=== PATIENT | male | born 1945 | race Caucasian/White ===

== ENCOUNTER 2016-05-24 08:16 | Emergency (ER) | payer MEDICARE ==
[~2016-05-24] VITALS: Ht 172.7 cm; Wt 134.0 kg
[~2016-05-24 08:16] MED LIST: ALPR0.5T3 PO; COZA100T PO; IPRAAER IN; METO25 PO; PARO30TA PO; ZOCO40TA PO
[2016-05-24 08:20] VITALS: BP 178/97; PULSE 89; RESP 28; TEMP 97.9; O2SAT 88
[2016-05-24 08:22] VITALS: RESP 28; O2SAT 94
[2016-05-24] MEDS ORDERED: SODIUM CHLORIDE 0.9% FLUSH 5 ML FLUSH IVF PRN (08:30)
[2016-05-24] MEDS ORDERED: methylPREDNISolone SOD SUCC 125 MG/2 ML VIAL IVP ONE (08:30)
[2016-05-24 08:37] LABS: AUTOMATED NEUTROPHIL # 5.4 TH/MM3 (1.8-7.7); BASOPHIL # 0.1 TH/MM3 (0-0.2); EOSINOPHIL # 0.3 TH/MM3 (0-0.4); EOSINOPHIL % 3.2 % (0.0-4.0); HEMO FLAGS DIFF FINAL; LYMPH % 17.6 % (9.0-44.0); LYMPHOCYTE # 1.5 TH/MM3 (1.0-4.8); MEAN CELL VOLUME 88.1 FL (80.0-100.0); MEAN CORPUSCULAR HEMOGLOBIN 29.7 PG (27.0-34.0); MEAN CORPUSCULAR HGB CONC 33.7 % (32.0-36.0); MONO % 15.4 % (0.0-8.0); NEUT % 62.8 % (16.0-70.0); PLATELET COUNT 199 TH/MM3 (150-450); RED BLOOD COUNT 4.76 MIL/MM3 (4.50-5.90); RED CELL DISTRIBUTION WIDTH 14.1 % (11.6-17.2); WHITE BLOOD COUNT 8.6 TH/MM3 (4.0-11.0)
--- NOTE | 2016-05-24 08:40 | PD ---
HPI . Dyspnea Chief Complaint: Respiratory Time Seen by Provider: 08:20 Travel History International Travel<30 days: No Contact w/Intl Traveler<30days: No History of Present Illness HPI Patient presents with increasing dyspnea since yesterday. He describes dyspnea on exertion stating that he can only walk 2 or 3 steps about having to stop and catch his breath. He also reports a congested sounding cough but no sputum production. He denies fever. He admits to increased swelling of his lower extremities, left worse than right. He reports a lesion on the left lower extremity for the last couple of days which has been draining clear fluid. He states that he bumped his leg on something causing the break in the skin. [facility] Past Medical History COPD: Yes Diabetes: Yes (BORDERLINE) Diminished Hearing: No Hypertension: Yes Social History Alcohol Use: Yes (WEEKLY) Tobacco Use: Yes Substance Use: No Allergies-Medications (Allergen,Severity, Reaction): Coded Allergies: No Known Allergies (Unverified , 05/24/16) Reported Meds & Prescriptions Reported Meds & Active Scripts Active Reported Combivent Respimat (Albuterol/Ipratropium) Respimat Aer 3 Inhalation IN QID Zocor 40 mg (Simvastatin) 40 Mg Tab 1 Tab PO HS Paroxetine Hcl (Paroxetine HCl) 30 Mg Tab 30 Mg PO DAILY Metoprolol Tartrate 25 mg (Metoprolol Tartrate) 25 Mg Tab 1 Tab PO BID Cozaar (Losartan Potassium) 100 Mg Tab 100 Mg PO DAILY Alprazolam 0.5 Mg Tab 0.5 Mg PO HS Review of Systems Except as stated in HPI: all other systems reviewed are Neg General / Constitutional: No: Fever, Chills Cardiovascular: Positive: Dyspnea on exertion, Edema Respiratory: Positive: Cough, Shortness of Breath Gastrointestinal: No: Nausea, Vomiting Skin: Positive Rash, Positive Lesions Physical Exam Narrative GENERAL: Obese man who is having some mild respiratory distress. SKIN: Warm and dry. He has an ulcerative lesion noted to the left lateral lower extremity. It is about 4 cm in diameter and is draining serous fluid. The surrounding skin is edematous and thickened and a alejandra red color. HEAD: Atraumatic. Normocephalic. EYES: Pupils equal and round. ENT: No nasal bleeding or discharge. Mucous membranes pink and moist. NECK: Trachea midline. CARDIOVASCULAR: Regular rate and rhythm. Heart sounds are normal. RESPIRATORY: No accessory muscle use. Decreased air movement throughout. He is able to speak in complete sentences without respiratory distress. GASTROINTESTINAL: Abdomen soft, non-tender, nondistended. MUSCULOSKELETAL: No obvious deformities. Positive lower extremity edema, left worse than right. The right leg does not have the above-mentioned skin changes. NEUROLOGICAL: Awake and alert. No obvious cranial nerve deficits. Motor grossly within normal limits. Normal speech. PSYCHIATRIC: Appropriate mood and affect; insight and judgment normal. Data Data Last Documented VS Vital Signs Date Time Temp Pulse Resp B/P Pulse Ox O2 Delivery O2 Flow Rate FiO2 05/24/16 08:22 28 94 05/24/16 08:22 Nasal Cannula 3 05/24/16 08:20 97.9 89 178/97 Orders Complete Blood Count With Diff (05/24/16 08:21) Comprehensive Metabolic Panel (05/24/16 08:21) B-Type Natriuretic Peptide (05/24/16 08:21) Prothrombin Time / Inr (Pt) (05/24/16 08:21) Magnesium (Mg) (05/24/16 08:21) Ckmb (Isoenzyme) Profile (05/24/16 08:21) Troponin I (05/24/16 08:21) Iv Access Insert/Monitor (05/24/16 08:21) Electrocardiogram (05/24/16 08:21) Ecg Monitoring (05/24/16 08:21) Oximetry (05/24/16 08:21) Oxygen Administration (05/24/16 08:21) Chest, Single Ap (05/24/16 08:21) Sodium Chloride 0.9% Flush (Ns Flush) (05/24/16 08:30) Methylprednisolone So Succ Inj (Solumedr (05/24/16 08:30) Albuterol-Ipratropium Neb (Duoneb Neb) (05/24/16 08:30) CKMB (05/24/16 08:27) CKMB% (05/24/16 08:27) Labs Laboratory Tests Test 05/24/16 08:27 White Blood Count 8.6 TH/MM3 Red Blood Count 4.76 MIL/MM3 Hemoglobin 14.1 GM/DL Hematocrit 42.0 % Mean Corpuscular Volume 88.1 FL Mean Corpuscular Hemoglobin 29.7 PG Mean Corpuscular Hemoglobin 33.7 % Concent Red Cell Distribution Width 14.1 % Platelet Count 199 TH/MM3 Mean Platelet Volume 9.3 FL Neutrophils (%) (Auto) 62.8 % Lymphocytes (%) (Auto) 17.6 % Monocytes (%) (Auto) 15.4 % Eosinophils (%) (Auto) 3.2 % Basophils (%) (Auto) 1.0 % Neutrophils # (Auto) 5.4 TH/MM3 Lymphocytes # (Auto) 1.5 TH/MM3 Monocytes # (Auto) 1.3 TH/MM3 Eosinophils # (Auto) 0.3 TH/MM3 Basophils # (Auto) 0.1 TH/MM3 CBC Comment DIFF FINAL Differential Comment Prothrombin Time 11.0 SEC Prothromb Time International 1.0 RATIO Ratio Sodium Level 140 MEQ/L Potassium Level 4.2 MEQ/L Chloride Level 104 MEQ/L Carbon Dioxide Level 28.2 MEQ/L Anion Gap 8 MEQ/L Blood Urea Nitrogen 10 MG/DL Creatinine 0.92 MG/DL Estimat Glomerular Filtration 82 ML/MIN Rate Random Glucose 124 MG/DL Calcium Level 8.6 MG/DL Magnesium Level 2.1 MG/DL Total Bilirubin 0.3 MG/DL Aspartate Amino Transf 18 U/L (AST/SGOT) Alanine Aminotransferase 26 U/L (ALT/SGPT) Alkaline Phosphatase 67 U/L Total Creatine Kinase 154 U/L Creatine Kinase MB 1.3 NG/ML Troponin I LESS THAN 0.02 NG/ML B-Type Natriuretic Peptide 34 PG/ML Total Protein 7.0 GM/DL Albumin 3.2 GM/DL MDM Medical Decision Making Medical Screen Exam Complete: Yes Emergency Medical Condition: Yes Medical Record Reviewed: Yes (PFTs show severe obstructive disease with minimal response to bronchodilators.) Interpretation(s) EKG shows a sinus rhythm with no acute ST segment elevation or depression. Differential Diagnosis Differential diagnosis of dyspnea includes but is not limited to congestive heart failure, pneumonia, wheezing, pneumothorax, pulmonary embolism Narrative Course Patient presents with increasing dyspnea since yesterday. This is probably a COPD exacerbation but could be CHF. 9:20 AM CBC is normal Chemistries are normal. Cardiac enzymes are negative. His BNP is 34. Chest x-ray shows no infiltrate. The chest x-ray was independently viewed by me. So, this patient appears to have a COPD exacerbation. Patient is feeling much better following steroids and nebs. Critical Care Narrative Aggregate critical care time was 30 minutes. Time to perform other separately billable procedures was not included in the critical care time. My time did not include minutes spent treating any other patients simultaneously or on activities that did not directly contribute to the patient's treatment. The services I provided to this patient were to treat and/or prevent clinically significant deterioration that could result in: Further respiratory compromise, respiratory arrest, I provided critical care services requiring my management, as noted below: Chart data review, documentation time, medication orders and management, vital sign assessments/reviewing monitor data, ordering and reviewing lab tests, ordering and interpreting/reviewing x-rays and diagnostic studies, care of the patient and discussion of the patient with the admitting physicians. Diagnosis Primary Impression: COPD exacerbation Med/Other Pt SpecificInfo: Prescription(s) given Scripts Prednisone (48) 10 mg tab Dose Pack 10 Mg Dspk10 Mg PO DIRECTED #1 DSPK Ref 0 Prov:Iqra Cabral MD 05/24/16 Disposition: 01 DISCHARGE HOME Condition: Stable Iqra Cabral MD May 24, 2016 08:40
[2016-05-24] MEDS: RESP: ALBUTEROL 2.5 MG/IPRATROPIUM 0.5 MG NEB (SCH) INH (08:48)
[2016-05-24 09:02] LABS: ALKALINE PHOSPHATASE 67 U/L (45-117); CREATINE KINASE 154 U/L (39-308); TOTAL BILIRUBIN ADULT 0.3 MG/DL (0.2-1.0)
[2016-05-24 09:06] LABS: ALT (GPT) 26 U/L (12-78); ANION GAP 8 MEQ/L (5-15); AST (GOT) 18 U/L (15-37); BICARBONATE 28.2 MEQ/L (21.0-32.0); BLOOD UREA NITROGEN 10 MG/DL (7-18); CHLORIDE 104 MEQ/L (98-107); GLOMERULAR FILTRATION RATE 82 ML/MIN (>89); MAGNESIUM 2.1 MG/DL (1.5-2.5); POTASSIUM 4.2 MEQ/L (3.5-5.1); SODIUM (NA) 140 MEQ/L (136-145)
--- NOTE | 2016-05-24 09:11 | RADRPT ---
EXAM DATE/TIME: 05/24/2016 08:48 [facility] COMPARISON: No previous studies available for comparison. INDICATIONS : Shortness of breath. MEDICAL HISTORY : Hypertension. Chronic obstructive pulmonary disease. Diabetes mellitus type II. Smoker. SURGICAL HISTORY : None. ENCOUNTER: Initial ACUITY: 2 days PAIN SCORE: 0/10 LOCATION: Bilateral chest FINDINGS: A single view of the chest demonstrates the lungs to be symmetrically aerated without evidence of mas s, infiltrate or effusion. The cardiomediastinal contours are unremarkable. Osseous structures are intact. CONCLUSION: No acute disease. David Krause MD on May 24, 2016 at 9:09 Board Certified Radiologist. This report was verified electronically.
[2016-05-24 09:14] LABS: CKMB 1.3 NG/ML (0.5-3.6)
[2016-05-24] MEDS ORDERED: PRED10PA2 PO (09:26)
[2016-05-24 09:30] VITALS: BP 142/101; PULSE 98; RESP 16; O2SAT 98
[2016-05-24] MEDS ORDERED: ALPR0.5T3 PO (10:11)
[2016-05-24] MEDS ORDERED: SPIRCAP INH (10:11)
[2016-05-24] MEDS ORDERED: FURO40TA PO (10:11)
[2016-05-24] MEDS ORDERED: SYMB80AE INH (10:11)
[2016-05-24] MEDS ORDERED: LOSA100T PO (10:11)
[2016-05-24] MEDS ORDERED: SIMV40TA PO (10:11)
[2016-05-24] MEDS ORDERED: METO25TA3 PO (10:11)
[2016-05-24] MEDS ORDERED: PARO30TA2 PO (10:11)
[2016-05-24] MEDS ORDERED: ALBU1AER5 INH (10:11)
[2016-05-24 10:30] VITALS: BP 154/108; PULSE 104; RESP 18; O2SAT 98
[2016-05-24] MEDS ORDERED: LOSARTAN 50 MG TAB PO ONE (10:45)
[2016-05-24] MEDS ORDERED: METOPROLOL TARTRATE 25 MG TAB PO ONE (10:45)
--- NOTE | 2016-05-24 13:07 | EKG ---
Date Performed: 05/24/2016 Time Performed: 08:34:34 PTAGE: 70 years EKG: Sinus rhythm WITH OCCASIONAL SUPRAVENTRICULAR PREMATURE COMPLEXES BORDERLINE ECG NO PREVIOUS TRACING DOCTOR: Eliza Clements Interpretating Date/Time 05/24/2016 13:06:11
== END 2016-05-24 10:58 | disposition home or self-care (01) ==
LOC: NEPE 08:16
DX: J44.1 Chronic obstructive pulmonary disease with (acute) exacerbation (principal); I10 Essential (primary) hypertension; Z72.0 Tobacco use; F10.10 Alcohol abuse, uncomplicated
CPT/HCPCS: 71010; 80053; 82550; 82552; 83735; 83880; 84484; 85025; 85610; 93005; 94640; 94664; 96374; 99284; J2930

== ENCOUNTER 2016-08-27 00:36 | Observation (INO) | payer MEDICARE ==
[2016-08-27] VITALS (8 sets, daily range): BP systolic 114–155; BP diastolic 56–72; PULSE 90–102; RESP 18–32; TEMP 97.9–98.7; O2SAT 85–98
[~2016-08-27] VITALS: Ht 172.7 cm; Wt 137.0 kg
[~2016-08-27 00:36] MED LIST changes: +ALBU1AER5 INH; -COZA100T PO; +FURO40TA PO; -IPRAAER IN; +LOSA100T PO; -METO25 PO; +METO25TA3 PO; -PARO30TA PO; +PARO30TA2 PO; +PRED10PA2 PO; +SIMV40TA PO; +SPIRCAP INH; +SYMB80AE INH; -ZOCO40TA PO
[2016-08-27] MEDS ORDERED: SODIUM CHLORIDE 0.9% FLUSH 10 ML FLUSH IVF PRN (00:45)
[2016-08-27] MEDS ORDERED: methylPREDNISolone SOD SUCC 125 MG/2 ML VIAL IVP ONE (00:45)
[2016-08-27] MEDS: RESP: ALBUTEROL 2.5 MG/IPRATROPIUM 0.5 MG NEB (SCH) INH (00:57)
[2016-08-27 01:26] LABS: BASOPHIL # 0.1 TH/MM3 (0-0.2); BASOPHIL % 0.8 % (0.0-2.0); EOSINOPHIL # 0.2 TH/MM3 (0-0.4); EOSINOPHIL % 1.4 % (0.0-4.0); HEMATOCRIT 43.4 % (39.0-51.0); HEMO FLAGS DIFF FINAL; LYMPH % 15.9 % (9.0-44.0); LYMPHOCYTE # 2.2 TH/MM3 (1.0-4.8); MEAN CELL VOLUME 87.6 FL (80.0-100.0); MEAN CORPUSCULAR HEMOGLOBIN 28.9 PG (27.0-34.0); MONO % 11.2 % (0.0-8.0); NEUT % 70.7 % (16.0-70.0); PLATELET COUNT 224 TH/MM3 (150-450); RED BLOOD COUNT 4.95 MIL/MM3 (4.50-5.90); RED CELL DISTRIBUTION WIDTH 14.1 % (11.6-17.2); WHITE BLOOD COUNT 14.1 TH/MM3 (4.0-11.0)
[2016-08-27 01:35] LABS: APTT (PATIENT) 26.8 SEC (24.3-30.1); PROTHROMBIN TIME - PATIENT 10.7 SEC (9.8-11.6)
[2016-08-27 01:45] LABS: ALT (GPT) 26 U/L (12-78); ANION GAP 8 MEQ/L (5-15); AST (GOT) 16 U/L (15-37); BICARBONATE 32.6 MEQ/L (21.0-32.0); BLOOD UREA NITROGEN 17 MG/DL (7-18); CHLORIDE 100 MEQ/L (98-107); GLOMERULAR FILTRATION RATE 71 ML/MIN (>89); POTASSIUM 4.2 MEQ/L (3.5-5.1); SODIUM (NA) 141 MEQ/L (136-145)
--- NOTE | 2016-08-27 01:45 | RADRPT ---
EXAM DATE/TIME: 08/27/2016 01:10 [facility] COMPARISON: CHEST SINGLE AP, May 24, 2016, 8:48. INDICATIONS : Shortness of breath. MEDICAL HISTORY : Hypertension. Chronic obstructive pulmonary disease. Diabetes mellitus type II. SURGICAL HISTORY : None. ENCOUNTER: Initial ACUITY: 1 day PAIN SCORE: 0/10 LOCATION: Bilateral chest FINDINGS: A single view of the chest demonstrates the lungs to be symmetrically aerated without evidence of mas s, infiltrate or effusion. The cardiomediastinal contours are unremarkable. Osseous structures are intact. CONCLUSION: No acute disease. Arnie Pope Jr., MD on August 27, 2016 at 1:43 Board Certified Radiologist. This report was verified electronically.
[2016-08-27 01:49] LABS: ALKALINE PHOSPHATASE 66 U/L (45-117); CREATINE KINASE 101 U/L (39-308); TOTAL BILIRUBIN ADULT 0.3 MG/DL (0.2-1.0)
[2016-08-27 02:07] LABS: CKMB 1.9 NG/ML (0.5-3.6)
[2016-08-27] MEDS ORDERED: MORPHINE SULFATE 4 MG/ML INJ IV PUSH ONE (03:00)
[2016-08-27] MEDS ORDERED: IOHEXOL 350 MG/ML 10 ML VIAL (for RAD DIAG) IV ONE (03:00)
--- NOTE | 2016-08-27 03:15 | RADRPT ---
EXAM DATE/TIME: 08/27/2016 02:49 [facility] COMPARISON: No previous studies available for comparison. INDICATIONS : Chest pain and short of breath, evaluate for pulmonary embolism. IV CONTRAST: 75 cc Omnipaque 350 (iohexol) IV RADIATION DOSE: 26.01 CTDIvol (mGy) MEDICAL HISTORY : Hypertension. Chronic obstructive pulmonary disease. SURGICAL HISTORY : None. ENCOUNTER: Initial ACUITY: 2 days PAIN SCALE: 4/10 LOCATION: chest TECHNIQUE: Volumetric scanning of the chest was performed using a pulmonary embolism protocol MIP images were re constructed. Using automated exposure control and adjustment of the mA and/or kV according to patien t size, radiation dose was kept as low as reasonably achievable to obtain optimal diagnostic quality images. FINDINGS: PULMONARY ARTERIES: No filling defects are seen in the pulmonary arteries through the segmental level. LUNGS: Linear atelectasis is seen involving the bases bilaterally. No infiltrates or effusions. PLEURAE: There is no pleural thickening or pleural effusion. MEDIASTINUM: There is good visualization of the great vessels of the middle mediastinum. No evidence of mediastin al or hilar adenopathy/mass. MUSCULOSKELETAL: Within normal limits for patient age. MISCELLANEOUS: Small calcified gallstones are noted within the gallbladder. CONCLUSION: 1. No pulmonary emboli. 2. Bibasilar atelectasis versus scarring. 3. Cholelithiasis. Arnie Pope Jr., MD on August 27, 2016 at 3:11 Board Certified Radiologist. This report was verified electronically.
--- NOTE | 2016-08-27 03:50 | PD ---
HPI Chief Complaint: Respiratory Symptoms Time Seen by Provider: 00:44 Travel History International Travel<30 days: No Contact w/Intl Traveler<30days: No Traveled to known affect area: No History of Present Illness HPI Patient is a 70-year-old male who comes in complaining of shortness of breath and chest pain. He says he has been feeling short of breath for the past few days, but the chest pain started a few hours prior to arrival. He says he was sitting down when the pain started. He says the pain is in the center of his chest and a sharp in nature. He has history of COPD, and says been bothering him lately. He has had a cough, but has not had any fever or chills. He denies nausea or vomiting. PFSH Past Medical History COPD: Yes Diabetes: Yes (DIET CONTROLLED) Patient Takes Glucophage: No Diminished Hearing: No Hypertension: Yes Respiratory: Yes (COPD) Past Surgical History Abdominal Surgery: Yes (HERNIA REPAIR) Social History Alcohol Use: Yes (WEEKLY) Tobacco Use: No Substance Use: No Allergies-Medications (Allergen,Severity, Reaction): Coded Allergies: No Known Allergies (Unverified , 08/27/16) Reported Meds & Prescriptions Reported Meds & Active Scripts Active Prednisone (48) 10 mg tab Dose Pack (Prednisone) 10 Mg Dspk 10 Mg PO DIRECTED Reported Furosemide 40 Mg Tab 40 Mg PO DAILY Spiriva Handihaler (Tiotropium Inh) 18 Mcg Cap 18 Mcg INH DAILY 1 capsule = 18 mcg Simvastatin 40 Mg Tab 40 Mg PO HS Paroxetine (Paroxetine HCl) 30 Mg Tab 30 Mg PO DAILY Metoprolol Tartrate 25 Mg Tab 25 Mg PO BID Losartan (Losartan Potassium) 100 Mg Tab 100 Mg PO DAILY Symbicort Inh (Budesonide/Formoterol Fumarate) 80-4.5 Mcg/Act Aero 2 Puff INH BID Alprazolam 0.5 Mg Tab 0.5 Mg PO BID Proair Respiclick Inh (Albuterol Sulfate) 90 Mcg/Act Aerp 1 Puff INH Q4H PRN Review of Systems Except as stated in HPI: all other systems reviewed are Neg General / Constitutional: No: Fever, Chills Eyes: No: Blurred Vision HENT: No: Headaches Cardiovascular: Positive: Chest Pain or Discomfort Respiratory: Positive: Cough, Shortness of Breath Gastrointestinal: No: Nausea, Vomiting Musculoskeletal: Positive: Edema, No: Pain Skin: No Rash Neurologic: No: Weakness Physical Exam Narrative GENERAL: Awake and alert, in no acute distress. SKIN: Focused skin assessment warm/dry. Chronic erythema of the left lower extremity. HEAD: Atraumatic. Normocephalic. EYES: Pupils equal and round. No scleral icterus. ENT: No nasal bleeding or discharge. Mucous membranes pink and moist. NECK: Trachea midline. No JVD. CARDIOVASCULAR: Regular rate and rhythm. No murmur appreciated. RESPIRATORY: No accessory muscle use. Decreased breath sounds bilaterally. Breath sounds equal bilaterally. GASTROINTESTINAL: Abdomen soft, non-tender, nondistended. MUSCULOSKELETAL: No obvious deformities. No clubbing. No cyanosis. Mild edema bilateral lower extremities. NEUROLOGICAL: Awake and alert. No obvious cranial nerve deficits. Motor grossly within normal limits. Normal speech. PSYCHIATRIC: Appropriate mood and affect; insight and judgment normal. Data Data Last Documented VS Vital Signs Date Time Temp Pulse Resp B/P Pulse Ox O2 Delivery O2 Flow Rate FiO2 08/27/16 01:00 98 Nasal Cannula 2.00 08/27/16 00:44 98.7 93 32 154/72 Orders Complete Blood Count With Diff (08/27/16 00:44) Comprehensive Metabolic Panel (08/27/16 00:44) B-Type Natriuretic Peptide (08/27/16 00:44) Act Partial Throm Time (Ptt) (08/27/16 00:44) Prothrombin Time / Inr (Pt) (08/27/16 00:44) Ckmb (Isoenzyme) Profile (08/27/16 00:44) Troponin I (08/27/16 00:44) Iv Access Insert/Monitor (08/27/16 00:44) Ecg Monitoring (08/27/16 00:44) Oximetry (08/27/16 00:44) Oxygen Administration (08/27/16 00:44) Chest, Single Ap (08/27/16 00:44) Ct Pulmonary Angiogram (08/27/16 00:44) Sodium Chloride 0.9% Flush (Ns Flush) (08/27/16 00:45) Methylprednisolone So Succ Inj (Solumedr (08/27/16 00:45) Albuterol-Ipratropium Neb (Duoneb Neb) (08/27/16 00:45) CKMB (08/27/16 01:10) CKMB% (08/27/16 01:10) Morphine Inj (Morphine Inj) (08/27/16 03:00) Iohexol 350 Inj (Omnipaque 350 Inj) (08/27/16 03:00) Admit Order (Ed Use Only) (08/27/16 ) Labs Laboratory Tests Test 08/27/16 01:10 White Blood Count 14.1 TH/MM3 Red Blood Count 4.95 MIL/MM3 Hemoglobin 14.3 GM/DL Hematocrit 43.4 % Mean Corpuscular Volume 87.6 FL Mean Corpuscular Hemoglobin 28.9 PG Mean Corpuscular Hemoglobin 33.0 % Concent Red Cell Distribution Width 14.1 % Platelet Count 224 TH/MM3 Mean Platelet Volume 10.1 FL Neutrophils (%) (Auto) 70.7 % Lymphocytes (%) (Auto) 15.9 % Monocytes (%) (Auto) 11.2 % Eosinophils (%) (Auto) 1.4 % Basophils (%) (Auto) 0.8 % Neutrophils # (Auto) 10.0 TH/MM3 Lymphocytes # (Auto) 2.2 TH/MM3 Monocytes # (Auto) 1.6 TH/MM3 Eosinophils # (Auto) 0.2 TH/MM3 Basophils # (Auto) 0.1 TH/MM3 CBC Comment DIFF FINAL Differential Comment Prothrombin Time 10.7 SEC Prothromb Time International 1.0 RATIO Ratio Activated Partial 26.8 SEC Thromboplast Time Sodium Level 141 MEQ/L Potassium Level 4.2 MEQ/L Chloride Level 100 MEQ/L Carbon Dioxide Level 32.6 MEQ/L Anion Gap 8 MEQ/L Blood Urea Nitrogen 17 MG/DL Creatinine 1.04 MG/DL Estimat Glomerular Filtration 71 ML/MIN Rate Random Glucose 150 MG/DL Calcium Level 9.1 MG/DL Total Bilirubin 0.3 MG/DL Aspartate Amino Transf 16 U/L (AST/SGOT) Alanine Aminotransferase 26 U/L (ALT/SGPT) Alkaline Phosphatase 66 U/L Total Creatine Kinase 101 U/L Creatine Kinase MB 1.9 NG/ML Troponin I LESS THAN 0.02 NG/ML B-Type Natriuretic Peptide 21 PG/ML Total Protein 7.2 GM/DL Albumin 3.5 GM/DL MDM Medical Decision Making Medical Screen Exam Complete: Yes Emergency Medical Condition: Yes Medical Record Reviewed: Yes Interpretation(s) ECG shows sinus rhythm at 98, no ST elevation or depression. Differential Diagnosis COPD exacerbation versus ACS versus NSTEMI versus STEMI versus pneumonia Narrative Course Patient is a 70-year-old male comes in complaining of shortness of breath and chest pain. Exam shows decreased breath sounds throughout both lungs. IV established, labs sent. 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 Labs show no elevated white blood cell count of 15. Patient given 3 duo nebs and a dose of steroids. Given aspirin. He reports feeling better after duo nebs, however he continues of chest pain. Given morphine for pain. We'll admit for further management. Diagnosis Primary Impression: Chest pain Qualified Code: R07.9 - Chest pain, unspecified type Additional Impression: COPD exacerbation Admitting Information Admitting Physician Requests: Gela Vu MD Aug 27, 2016 03:50
[2016-08-27] MEDS ORDERED: RESP: ALBUTEROL 1.25 MG/3 ML NEB (PRN) NEB (04:00)
[2016-08-27] MEDS: RESP: ALBUTEROL 2.5 MG/IPRATROPIUM 0.5 MG NEB (SCH) NEB ×4 (04:10→15:31)
[2016-08-27] MEDS ORDERED: methylPREDNISolone SOD SUCC 125 MG/2 ML VIAL IV PUSH SCH (06:00)
[2016-08-27] MEDS ORDERED: ASPIRIN 81 MG CHEW TAB CHEW ONE (06:15)
[2016-08-27] MEDS ORDERED: ACETAMINOPHEN/HYDROcodone 325 MG/5 MG TAB PO PRN (10:00)
[2016-08-27] MEDS ORDERED: NALOXONE HCL 0.4 MG/ML AMP IV PRN (10:00)
[2016-08-27] MEDS ORDERED: ACETAMINOPHEN/HYDROcodone 325 MG/7.5 MG TAB PO PRN (10:00)
[2016-08-27] MEDS ORDERED: DEXTROSE 50% IN WATER 50 ML VIAL(D50) IV PUSH PRN (10:00)
[2016-08-27] MEDS ORDERED: GLUCAGON 1 MG/ML VIAL OTHER PRN (10:00)
[2016-08-27] MEDS ORDERED: MORPHINE SULFATE 4 MG/ML INJ IV PRN (10:00)
[2016-08-27] MEDS ORDERED: ACETAMINOPHEN 325 MG TAB PO PRN (10:00)
--- NOTE | 2016-08-27 10:18 | HHI.HP ---
cc: Rohit Damian MD [facility] Service [facility] Primary Care Physician Rohit Damian MD Admission Diagnosis COPD, chest pain Diagnoses: Chief Complaint: Chest pain Travel History International Travel<30 Days: No Contact w/Intl Traveler <30 Da: No Traveled to Known Affected Are: No History of Present Illness 70-year-old obese male with a history of hypertension, COPD, diet-controlled diabetes mellitus presents emergency room secondary to recurrent substernal chest pain that happened yesterday evening after dinner. He stated that earlier yesterday afternoon, he was at [employer] and was putting up tile loading it to his truck when he had some increasing shortness of breath with physical exertion. At that time, he didn't have any significant chest pain and noted the shortness of breath improved with rest. Post dinner, patient developed a sharp stabbing substernal pain with no radiation with the pain intensity of 8 out of 10 with no associated shortness of breath, nausea, nor any heart palpitations. At that time, he also felt extremely fatigued. After he took 2 Ex-Lax, he states that the pain did improve somewhat down to a 2 out of 10, however when the pain started escalating again back to pain intensity of 8, he came to the emergency room this morning at 1 AM. He states after given morphine , his pain has improved. Currently, he states his pain is at a level of 1 out of 10. He states that he had nuclear stress test probably within the past 5 years which was negative. He also had cardiac catheterization 15 years ago which is negative. However, since then he admitted to having increased in weight gain. He denies any new symptoms of orthopnea, PND, increased lower extremity swelling. He actually stated that taking his home Lasix has helped his lower extremity edema and actually this has improved the past few weeks. He denies associated fever, nausea, vomiting, nor any chills. He denies any history of gallbladder disease. He does state he has a history of COPD but is not on any home oxygen. He does use scheduled inhaler but not a nebulizer machine. He does ambulate independently. Review of Systems Constitutional: COMPLAINS OF: Fatigue, Weight gain, DENIES: Fever, Chills, Change in appetite Endocrine: DENIES: Heat/cold intolerance Eyes: DENIES: Blurred vision, Eye pain, Vision loss Ears, nose, mouth, throat: DENIES: Hearing loss, Nasal discharge, Throat pain, Ear Pain, Sinus Pain Respiratory: COMPLAINS OF: Shortness of breath, DENIES: Cough, Wheezing, Hemoptysis, Sputum production Cardiovascular: COMPLAINS OF: Chest pain, DENIES: Palpitations, Dyspnea on Exertion, PND, Lower Extremity Edema, Orthopnea Gastrointestinal: DENIES: Abdominal pain, Black stools, Bloody stools, Constipation, Diarrhea, Nausea, Vomiting Musculoskeletal: DENIES: Joint pain, Muscle aches, Stiffness Integumentary: DENIES: Rash Hematologic/lymphatic: DENIES: Bruising, Lymphadenopathy Immunologic/allergic: DENIES: Eczema Neurologic: DENIES: Headache, Localized weakness, Paresthesias Psychiatric: COMPLAINS OF: Anxiety, DENIES: Depression, Suicidal Ideation Chronic lower extremity redness due to dermatitis Past Family Social History Past Medical History COPD Hypertension Diabetes mellitus diet controlled Past Surgical History Right inguinal hernia repair Reported Medications Albuterol 1 puff inhaler every 4 hours prn for shortness of breath Xanax 0.5 mg by mouth twice a day Symbicort puffs inhaler twice a day Lasix 40 mg by mouth daily Losartan 100 mg by mouth daily Metoprolol 25 mg by mouth twice a day Paroxetine 30 mg by mouth daily, he did miss one dose yesterday Prednisone taper 10 mg by mouth daily Simvastatin 40 mg by mouth daily at bedtime Spiriva inhaler daily Allergies: Coded Allergies: No Known Allergies (Unverified , 08/27/16) Family History Mother had asthma, father had no significant family history Social History Occasioning use of cigarettes, about one weekly, occasional use of alcohol Physical Exam Vital Signs Vital Signs Date Time Temp Pulse Resp B/P Pulse Ox O2 Delivery O2 Flow Rate FiO2 08/27/16 08:03 93 Nasal Cannula 4.00 08/27/16 07:11 98.4 90 18 114/56 91 Nasal Cannula 3 08/27/16 05:02 90 18 124/56 92 Nasal Cannula 3 08/27/16 04:58 90 Nasal Cannula 08/27/16 01:00 98 Nasal Cannula 2.00 4/6/17 00:44 98.7 93 32 154/72 85 08/27/16 00:40 97 Nasal Cannula 2 08/27/16 00:40 97 Nasal Cannula 4 Physical Exam GENERAL: This is a well-nourished, obese well-developed patient, in no apparent distress. SKIN: Bilateral erythematous venous stasis dermatitis, more so on the left lower extremity. Cool and dry. HEAD: Atraumatic. Normocephalic. No temporal or scalp tenderness. EYES: Pupils equal round and reactive. Extraocular motions intact. No scleral icterus. No injection or drainage. ENT: Nose without bleeding, purulent drainage or septal hematoma. Throat without erythema, tonsillar hypertrophy or exudate. Uvula midline. Airway patent. NECK: Trachea midline. No JVD or lymphadenopathy. Supple, nontender, no meningeal signs. CARDIOVASCULAR: Regular rate and rhythm RESPIRATORY: Clear to auscultation. Breath sounds equal bilaterally. No wheezes , rales, or rhonchi. GASTROINTESTINAL: Abdomen soft, non-tender, obese nondistended. No rebound or guarding No guarding. MUSCULOSKELETAL: Extremities without clubbing, cyanosis, has 1+ edema. No joint tenderness, effusion. No calf tenderness. Negative Homans sign bilaterally. NEUROLOGICAL: Awake and alert to person place time and situation. Cranial nerves II through XII intact. Motor and sensory grossly within normal limits. Five out of 5 muscle strength in all muscle groups. Normal speech. Laboratory Laboratory Tests Test 08/27/16 01:10 White Blood Count 14.1 Red Blood Count 4.95 Hemoglobin 14.3 Hematocrit 43.4 Mean Corpuscular Volume 87.6 Mean Corpuscular Hemoglobin 28.9 Mean Corpuscular Hemoglobin 33.0 Concent Red Cell Distribution Width 14.1 Platelet Count 224 Mean Platelet Volume 10.1 Neutrophils (%) (Auto) 70.7 Lymphocytes (%) (Auto) 15.9 Monocytes (%) (Auto) 11.2 Eosinophils (%) (Auto) 1.4 Basophils (%) (Auto) 0.8 Neutrophils # (Auto) 10.0 Lymphocytes # (Auto) 2.2 Monocytes # (Auto) 1.6 Eosinophils # (Auto) 0.2 Basophils # (Auto) 0.1 CBC Comment DIFF FINAL Differential Comment Prothrombin Time 10.7 Prothromb Time International 1.0 Ratio Activated Partial 26.8 Thromboplast Time Sodium Level 141 Potassium Level 4.2 Chloride Level 100 Carbon Dioxide Level 32.6 Anion Gap 8 Blood Urea Nitrogen 17 Creatinine 1.04 Estimat Glomerular Filtration 71 Rate Random Glucose 150 Calcium Level 9.1 Total Bilirubin 0.3 Aspartate Amino Transf 16 (AST/SGOT) Alanine Aminotransferase 26 (ALT/SGPT) Alkaline Phosphatase 66 Total Creatine Kinase 101 Creatine Kinase MB 1.9 Troponin I LESS THAN 0.02 B-Type Natriuretic Peptide 21 Total Protein 7.2 Albumin 3.5 Result Diagram: 08/27/1610908/27/16109 Imaging Last 24 hours Impressions Chest X-Ray 08/27/1643 Signed Impressions: Service Date/Time: August 01:10 - CONCLUSION: No acute disease. Arnie Pope Jr., MD CT Angiography 08/27/1643 Signed Impressions: Service Date/Time: , August 27, 2016 02:49 - CONCLUSION: 1. No pulmonary emboli. 2. Bibasilar atelectasis versus scarring. 3. Cholelithiasis. Arnie Pope Jr., MD Assessment and Plan Problem List: (1) Chest pain ICD Code: R07.9 Status: Acute (2) HTN (hypertension), benign ICD Code: I10 Status: Chronic (3) Diabetes mellitus type 2, controlled ICD Code: E11.9 Status: Chronic (4) Obesities, morbid ICD Code: E66.01 Status: Chronic Assessment and Plan 1. Atypical chest paincontinue serial cardiac enzymes and EKG. Presenting EKG with normal sinus rhythm with no signs of arrhythmia. Continue telemetry monitoring. CTA pulmonary showed no PE. Obtain nuclear stress test for further evaluation and workup. 2. COPD, chronicno signs of active exacerbation. This time will continue with home inhalers and prednisone. 3. History of morbid obesity with BMI greater than 40, weight loss counseling provided. 4. Gallstones on CT imagingpatient denies a history of gallbladder disease. This could be a differential diagnosis of his presenting chest pain. Will obtain an ultrasound abdomen gallbladder for evaluation today 5. Diet controlled diabetes mellituscontinue with Accu-Cheks with sliding scale insulin 6. Hypertension, essentialresume home Cozaar. 7. DVT prophylaxisLovenox. Discussed Condition With Patient and at bedside Problem Qualifiers (1) Chest pain: Qualified Code: R07.9 - Chest pain, unspecified type (2) Obesities, morbid: Qualified Code: E66.01 - Morbid obesity due to excess calories Angely Ramirez MD Aug 27, 2016 10:18
[2016-08-27] MEDS ORDERED: ALBUTEROL SULFATE 90 MCG/ACT HFA 8 GM INHALER INH PRN (10:30)
[2016-08-27] MEDS ORDERED: PILL SPLITTER OTHER PRN (10:30)
[2016-08-27] MEDS ORDERED: ALBUTEROL SULFATE 90 MCG/ACT HFA 18 GM INHALER INH PRN (10:56)
[2016-08-27] MEDS: INSULIN ASPART SUPPLEMENTAL SCALE SQ SCH ×3 (11:00→17:27)
--- NOTE | 2016-08-27 11:47 | RADRPT ---
EXAM DATE/TIME: 08/27/2016 10:37 [facility] COMPARISON: No previous studies available for comparison. INDICATIONS : Gallstones, abdominal pain. MEDICAL HISTORY : Chronic obstructive pulmonary disease. Shortness of breath. Chest pain. SURGICAL HISTORY : Hernia. ENCOUNTER: Initial ACUITY: 3 days PAIN SCORE: 0/10 LOCATION: Right upper quadrant MEASUREMENTS: LIVER: 19.2 cm length COMMON DUCT: 3 mm RIGHT KIDNEY: 13.0 x 5.6 x 6.6 cm FINDINGS: LIVER: Homogeneous echotexture without focal lesion or ductal dilatation. Hepatopedal flow seen in the port al vein.. COMMON DUCT: No intraluminal mass or stone visualized. GALLBLADDER: Contains no stones, demonstrates no wall thickening or pericholecystic fluid. PANCREAS: The visualized portions are within normal limits. RIGHT KIDNEY: No evidence of hydronephrosis, stone, or mass. 1.7 cm cyst upper pole renal sinus. CONCLUSION: 1. No gallstones seen. Normal dimension common hepatic duct. 2. Hepatomegaly without focal lesion. Arnie Sanz MD on August 27, 2016 at 11:44 Board Certified Radiologist. This report was verified electronically.
--- NOTE | 2016-08-27 12:50 | EKG ---
Date Performed: 08/27/2016 Time Performed: 00:39:41 PTAGE: 70 years EKG: Sinus rhythm NORMAL ECG PREVIOUS TRACING : 05/24/2016 08.34 Compared to prior tracing no significant change DOCTOR: Tino Foster Interpretating Date/Time 08/27/2016 12:48:47
[2016-08-27] MEDS ORDERED: REGADENOSON INJ 0.4 MG/5 ML SYR ONE (13:14)
--- NOTE | 2016-08-27 15:17 | RADRPT ---
EXAM DATE/TIME: 08/27/2016 12:42 [facility] COMPARISON: No previous studies available for comparison. INDICATIONS : Substernal chest pain. Past cardiac cath and negative nuclear stress test. Angina. DOSE: 35 mCi Tc99m Myoview at stress. 11 mCi Tc99m Myoview at rest. 0.4 mg Lexiscan STRESS SYMPTOMS: Shortness of breath. EJECTION FRACTION: > 70% MEDICAL HISTORY : Hypertension. Diabetes mellitus type 2. Chronic obstructive pulmonary disease. SURGICAL HISTORY : Inguinal hernia repair. ENCOUNTER: Initial ACUITY: 1 day PAIN SCALE: 4/10 LOCATION: Substernal chest TECHNIQUE: The patient underwent pharmacologic stress with infusion of prescribed dose. Continuous ECG tracing was monitored during stress. Gated SPECT imaging was performed after stress and conventional SPECT i maging was performed at rest. The examination was performed on a SPECT/CT scanner, both attenuation and non-corrected datasets were reviewed. FINDINGS: DISTRIBUTION: The maximum perfused segment at stress is in the septal wall. PERFUSION STUDY: The pattern of perfusion at stress is within normal limits with regional variation of perfusion withi n 25%. No evidence of redistribution. The summed stress score is zero. GATED STUDY: There is intact wall motion and thickening without hypokinetic or dyskinetic segments. CONCLUSION: 1. No evidence of stress-induced ischemia. 2. Typed wall motion with calculated ejection fraction greater than 70%. RISK CATEGORY: Low (<1% Annual Mortality Rate) the Arnie Sanz MD on August 27, 2016 at 15:15 Board Certified Radiologist. This report was verified electronically.
[2016-08-27] MEDS ORDERED: PRAVASTATIN SOD 80 MG TAB PO SCH (21:00)
[2016-08-27] MEDS ORDERED: BUDESONIDE-FORMOTEROL 80/4.5 MCG INHALER INH SCH (21:00)
[2016-08-27] MEDS ORDERED: ALPRAZolam 0.5 MG TAB PO SCH (21:00)
[2016-08-27] MEDS ORDERED: METOPROLOL TARTRATE 25 MG TAB PO SCH (21:00)
[2016-08-28] MEDS ORDERED: PARoxetine HCL 20 MG TAB PO SCH (09:00)
[2016-08-28] MEDS ORDERED: FUROSEMIDE 40 MG TAB PO SCH (09:00)
[2016-08-28] MEDS ORDERED: predniSONE 10 MG TAB PO SCH (09:00)
[2016-08-28] MEDS ORDERED: LOSARTAN 50 MG TAB PO SCH (09:00)
== END 2016-08-27 20:17 | disposition home or self-care (01) ==
LOC: NEPE 00:36 → NEDA 03:52 → NEPGCP 14:16 → HCIS 15:22 → NEPGCP 15:23
PROVIDERS: ADMIT Family Medicine; ATTEND Family Medicine
DX: R07.89 Other chest pain (principal); J44.9 Chronic obstructive pulmonary disease, unspecified; E11.9 Type 2 diabetes mellitus without complications; I10 Essential (primary) hypertension; K80.20 Calculus of gallbladder without cholecystitis without obstruction; E66.01 Morbid (severe) obesity due to excess calories; Z68.42 Body mass index [BMI] 45.0-49.9, adult; F17.210 Nicotine dependence, cigarettes, uncomplicated; Z79.51 Long term (current) use of inhaled steroids
CPT/HCPCS: 71010; 71275; 76705; 78452; 80053; 82550; 82552; 82948; 83880; 84484; 85025; 85610; 85730; 93005; 93017; 94640; 94664; 96374; 96375; 99285; A9502; G0378; J1815; J2270; J2785; J2930; Q9967

== ENCOUNTER → 2017-01-14 | Outpatient (CLI) | payer MEDICARE ==
[2017-01-14 08:30] LABS: BLOOD GAS BASE EXCESS 3.6 mmol/L (-2-2); BLOOD GAS CARBOXYHEMOGLOBIN 1.6 % (0-4); BLOOD GAS HCO3 28 mmol/L (22-26); BLOOD GAS METHEMOGLOBIN 1.1 % (0-2); BLOOD GAS O2 HGB SATURATION 89 % (90-100); BLOOD GAS OXYGEN CONTENT 18.2 Vol % (12.0-20.0); BLOOD GAS PCO2 50 mmHG (38-42); BLOOD GAS PO2 62 mmHG (61-120); BLOOD GAS TOTAL HGB 14.6 G/DL (12.0-16.0); TEMP CORR TO 98.6
[2017-01-14 08:31] LABS: CRITICAL VALUE YES; DRAW SITE RT RADIAL; FIO2 21 %; NUMBER OF ARTERIAL PUNCTURES 1; OXYGEN DEVICE RA; STAT NO; ULNAR PULSE PRESENT
--- NOTE | 2017-02-02 10:39 | RSPPFT ---
DATE OF PROCEDURE: 01/14/17 COMMENTS: Spirometry demonstrates an FEV1 of 0.9 at 40% of predicted, FVC of 2.1 at 65%, FEV1/FVC ratio is 45%. The [id number] is 15% of predicted. Post-bronchodilator study demonstrated mild improvements in the FVC. Lung volumes demonstrated a raised RV/TLC ratio indicating hyperinflation and air trapping. Airways resistance is increased. Diffusion capacity is moderately reduced. Flow volume loop suggests severe obstruction. IMPRESSION: 1. Severe obstructive disease. 2. Mild response to use of bronchodilator indicating some reversibility. 3. Moderate loss in diffusion capacity. 4. Blood gases on room air demonstrated a PCO2 of 50, PaO2 of 62, O2 Saturation of 88%, pH of 7.37 indicating respiratory acidosis and hypoxemia.
== END ==
LOC: PHRSP 07:16
DX: J44.9 Chronic obstructive pulmonary disease, unspecified (principal); R06.00 Dyspnea, unspecified; G47.30 Sleep apnea, unspecified
CPT/HCPCS: 36600; 82805; 94060; 94726; 94729

== ENCOUNTER 2017-08-12 15:55 | Emergency (ER) | payer MEDICARE ==
[~2017-08-12] VITALS: Ht 170.2 cm; Wt 150.0 kg
[2017-08-12 15:58] VITALS: BP 149/67; PULSE 107; RESP 20; TEMP 97.7; O2SAT 97
[2017-08-12] MEDS ORDERED: SODIUM CHLORIDE 0.9% FLUSH 10 ML FLUSH IVF PRN (16:30)
[2017-08-12 16:36] VITALS: BP 117/62; PULSE 109; O2SAT 90
--- NOTE | 2017-08-12 16:52 | RADRPT ---
EXAM DATE/TIME: 08/12/2017 16:26 [facility] COMPARISON: CHEST SINGLE AP, August 27, 2016, 1:10. INDICATIONS : Chest pain. MEDICAL HISTORY : Hypertension. Chronic obstructive pulmonary disease. Diabetes mellitus type II. SURGICAL HISTORY : None. ENCOUNTER: Initial ACUITY: 1 day PAIN SCORE: 0/10 LOCATION: chest FINDINGS: A single view of the chest demonstrates the lungs to be symmetrically aerated without evidence of mas s, infiltrate or effusion. The cardiomediastinal contours are unremarkable. Osseous structures are intact. CONCLUSION: No acute disease. Erik Lang MD on August 12, 2017 at 16:49 Board Certified Radiologist. This report was verified electronically.
[2017-08-12 17:16] LABS: INTERNATIONAL NORMALIZED RATIO 1.1 RATIO; PROTHROMBIN TIME - PATIENT 11.3 SEC (9.8-11.6)
[2017-08-12] MEDS ORDERED: ASPI81TA16 PO (17:20)
[2017-08-12] MEDS ORDERED: ALPR1TAB3 PO (17:20)
[2017-08-12] MEDS ORDERED: BUME2TAB PO (17:20)
[2017-08-12] MEDS ORDERED: THEO400T2 PO (17:20)
[2017-08-12] MEDS ORDERED: PRED2.5T PO (17:20)
[2017-08-12 17:31] LABS: ALBUMIN 3.5 GM/DL (3.4-5.0); AST (GOT) 19 U/L (15-37); BLOOD UREA NITROGEN 14 MG/DL (7-18); CALCIUM 9.6 MG/DL (8.5-10.1); CHLORIDE 98 MEQ/L (98-107); CREATININE 1.21 MG/DL (0.60-1.30); GLOMERULAR FILTRATION RATE 59 ML/MIN (>89); GLUCOSE,RANDOM 101 MG/DL (74-106); HEMATOCRIT 48.8 % (39.0-51.0); HEMOGLOBIN 15.9 GM/DL (13.0-17.0); MEAN CELL VOLUME 86.2 FL (80.0-100.0); MEAN CORPUSCULAR HEMOGLOBIN 28.1 PG (27.0-34.0); MEAN CORPUSCULAR HGB CONC 32.6 % (32.0-36.0); MEAN PLATELET VOLUME 9.8 FL (7.0-11.0); PLATELET COUNT 258 TH/MM3 (150-450); RED BLOOD COUNT 5.66 MIL/MM3 (4.50-5.90); RED CELL DISTRIBUTION WIDTH 15.2 % (11.6-17.2); SODIUM (NA) 137 MEQ/L (136-145); WHITE BLOOD COUNT 14.7 TH/MM3 (4.0-11.0)
[2017-08-12 17:32] LABS: ALT (GPT) 28 U/L (12-78)
[2017-08-12 17:35] LABS: ALKALINE PHOSPHATASE 64 U/L (45-117); TOTAL BILIRUBIN ADULT 0.4 MG/DL (0.2-1.0); TOTAL PROTEIN 7.4 GM/DL (6.4-8.2); TROPONIN I LESS THAN 0.02 NG/ML (0.02-0.05)
--- NOTE | 2017-08-12 18:30 | PD ---
HPI Chief Complaint: General Weakness Time Seen by Provider: 16:07 Travel History International Travel<30 days: No Contact w/Intl Traveler<30days: No Traveled to known affect area: No History of Present Illness HPI Patient is a 71 year old male who comes in complaining of "not feeling right." He says he went to [facility] and he was walking a lot more than usual when he started to feel unwell. 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 His blood pressure checked in the did an EKG. He has a rhythm strip with him and it looks like possible A. fib versus tachycardia. He says they repeated a 12-lead afterwards and told him that it was okay but told him that he should be checked out at the hospital. He never had any chest pain or increasing shortness of breath. He does say that he was very anxious. He is currently following with an prop maker and having several tests done to look for pituitary abnormalities and other issues. He is also working with doctors to be cleared for the gastric sleeve procedure. He says currently he feels well and thinks he is okay to go home. Severity is mild. PFSH Past Medical History Asthma: No Anxiety: Yes Depression: No Heart Rhythm Problems: No Cancer: No Cardiovascular Problems: Yes High Cholesterol: Yes Chest Pain: Yes Congestive Heart Failure: No COPD: Yes Diabetes: Yes Patient Takes Glucophage: No Diminished Hearing: No Endocrine: Yes Genitourinary: No Hypertension: Yes Implanted Vascular Access Dvce: No Neurologic: No Psychiatric: No Reproductive: No Respiratory: Yes (COPD ON 2L AT NIGHT) Sleep Apnea: Yes Past Surgical History Abdominal Surgery: Yes (HERNIA REPAIR) Other Surgery: Yes Social History Alcohol Use: Yes (WEEKLY) Tobacco Use: No Substance Use: No Allergies-Medications (Allergen,Severity, Reaction): Coded Allergies: No Known Allergies (Unverified Adverse Reaction, Unknown, 08/12/17) Reported Meds & Prescriptions Reported Meds & Active Scripts Active Reported Prednisone 2.5 Mg Tab 2.5 Mg PO DAILY Theophylline ER 24 HR (Theophylline) 400 Mg Tab 200 Mg PO BID Aspirin Adult Low Strength (Aspirin) 81 Mg Tabdr 81 Mg PO DAILY Bumetanide 2 Mg Tab 2 Mg PO DAILY Alprazolam 1 Mg Tab 1 Mg PO BID PRN Simvastatin 40 Mg Tab 40 Mg PO HS Paroxetine (Paroxetine HCl) 30 Mg Tab 30 Mg PO DAILY Metoprolol Tartrate 25 Mg Tab 25 Mg PO BID Losartan (Losartan Potassium) 100 Mg Tab 100 Mg PO DAILY Symbicort Inh (Budesonide/Formoterol Fumarate) 80-4.5 Mcg/Act Aero 2 Puff INH BID Proair Respiclick Inh (Albuterol Sulfate) 90 Mcg/Act Aerp 1 Puff INH Q6HR PRN Review of Systems Except as stated in HPI: all other systems reviewed are Neg General / Constitutional: No: Fever, Chills HENT: No: Headaches, Lightheadedness Cardiovascular: No: Chest Pain or Discomfort Gastrointestinal: No: Nausea, Vomiting Musculoskeletal: Positive: Edema, No: Myalgias Skin: No Change in Pigmentation Neurologic: No: Weakness Physical Exam Narrative GENERAL: Awake and alert, no acute distress. SKIN: Focused skin assessment warm/dry. Erythema of the bilateral lower extremities, reports this is improved from his usual. HEAD: Atraumatic. Normocephalic. EYES: Pupils equal and round. No scleral icterus. Extraocular movements intact. ENT: Mucous membranes pink and moist. NECK: Trachea midline. No JVD. CARDIOVASCULAR: Regular rate and rhythm. No murmur appreciated. RESPIRATORY: No accessory muscle use. Clear to auscultation. Breath sounds equal bilaterally. GASTROINTESTINAL: Abdomen soft, non-tender, nondistended. MUSCULOSKELETAL: No obvious deformities. No clubbing. No cyanosis. Bilateral 1 + pitting edema, reports this is improved from his usual. NEUROLOGICAL: Awake and alert. No obvious cranial nerve deficits. Motor grossly within normal limits. Normal speech. PSYCHIATRIC: Appropriate mood and affect; insight and judgment normal. Data Data Last Documented VS Vital Signs Date Time Temp Pulse Resp B/P (MAP) Pulse Ox O2 Delivery O2 Flow Rate FiO2 08/12/17 16:39 90 Room Air 08/12/17 16:36 109 117/62 (80) 08/12/17 15:58 97.7 20 Orders Orders B-Type Natriuretic Peptide (08/12/17 16:17) Complete Blood Count With Diff (08/12/17 16:17) Comprehensive Metabolic Panel (08/12/17 16:17) Prothrombin Time / Inr (Pt) (08/12/17 16:17) Act Partial Throm Time (Ptt) (08/12/17 16:17) Troponin I (08/12/17 16:17) Chest, Single Ap (08/12/17 16:17) Ecg Monitoring (08/12/17 16:17) Bilateral Bp Monitoring (08/12/17 16:17) Iv Access Insert/Monitor (08/12/17 16:17) Oximetry (08/12/17 16:17) Oxygen Administration (08/12/17 16:17) Sodium Chloride 0.9% Flush (Ns Flush) (08/12/17 16:30) Electrocardiogram (08/12/17 16:17) Labs Laboratory Tests Test 08/12/17 16:25 White Blood Count 14.7 TH/MM3 Red Blood Count 5.66 MIL/MM3 Hemoglobin 15.9 GM/DL Hematocrit 48.8 % Mean Corpuscular Volume 86.2 FL Mean Corpuscular Hemoglobin 28.1 PG Mean Corpuscular Hemoglobin Concent 32.6 % Red Cell Distribution Width 15.2 % Platelet Count 258 TH/MM3 Mean Platelet Volume 9.8 FL CBC Comment AUTO DIFF Prothrombin Time 11.3 SEC Prothromb Time International Ratio 1.1 RATIO Activated Partial Thromboplast Time 27.8 SEC Blood Urea Nitrogen 14 MG/DL Creatinine 1.21 MG/DL Random Glucose 101 MG/DL Total Protein 7.4 GM/DL Albumin 3.5 GM/DL Calcium Level 9.6 MG/DL Alkaline Phosphatase 64 U/L Aspartate Amino Transf (AST/SGOT) 19 U/L Alanine Aminotransferase (ALT/SGPT) 28 U/L Total Bilirubin 0.4 MG/DL Sodium Level 137 MEQ/L Potassium Level 4.0 MEQ/L Chloride Level 98 MEQ/L Carbon Dioxide Level 30.0 MEQ/L Anion Gap 9 MEQ/L Estimat Glomerular Filtration Rate 59 ML/MIN Troponin I LESS THAN 0.02 NG/ML B-Type Natriuretic Peptide 23 PG/ML MDM Medical Decision Making Medical Screen Exam Complete: Yes Emergency Medical Condition: Yes Medical Record Reviewed: Yes Interpretation(s) ECG shows normal sinus rhythm at a rate of 94, no ST elevation or depression, normal intervals Differential Diagnosis Electrolyte abnormality versus dehydration versus ACS (unlikely) Narrative Course Patient is a 8-year-old male who comes in because he was feeling unwell and went to the fire station where he had an abnormal rhythm strip. On exam he is no acute abnormalities. IV established, labs sent. Patient connected to the prorate clerk. Patient never observed to have an abnormal rhythm while here in the emergency department. All labs show no acute abnormalities. I discussed with the patient his need to see a surgical supplies sterilizer. He says he is going to see Dr. Sanchez. He is offered admission, but he would like to go home. He will be discharged and advised return anytime for any worsening symptoms. Diagnosis Primary Impression: Dysrhythmia Qualified Codes: I49.9 - Cardiac arrhythmia, unspecified Patient Instructions: General Instructions, Near Syncope (ED) Additional Instructions: Follow-up with a surgical supplies sterilizer. Return to the ED as needed for any worsening symptoms. Disposition: DISCHARGE HOME Condition: Stable Gela Sheehan MD Aug 12, 2017 18:30
[2017-08-12 18:35] LABS: BANDS 1 % (0-6); LYMPHOCYTES 12 % (9-44); MONOCYTES 6 % (0-8); NEUTROPHIL # MANUAL DIFF 12.1 TH/MM3 (1.8-7.7); POLYS (SEG NEUTROPHILS) 81 % (16-70)
--- NOTE | 2017-08-13 19:51 | EKG ---
Date Performed: 08/12/2017 Time Performed: 16:50:57 PTAGE: 71 years EKG: Sinus rhythm LOW QRS VOLTAGE IN PRECORDIAL LEADS Since previous tracing, no significant change noted BORDERLINE E CG PREVIOUS TRACING : 08/27/2016 00.39 DOCTOR: Heriberto Waed Interpretating Date/Time 08/13/2017 19:49:13
== END 2017-08-13 02:22 | disposition home or self-care (01) ==
LOC: NEPC 15:55
DX: I49.9 Cardiac arrhythmia, unspecified (principal); E78.00 Pure hypercholesterolemia, unspecified; I10 Essential (primary) hypertension; J44.9 Chronic obstructive pulmonary disease, unspecified
CPT/HCPCS: 71045; 80053; 83880; 84484; 85007; 85027; 85610; 85730; 93005

== ENCOUNTER 2018-03-18 10:12 | Inpatient (IN) ==
[2018-03-18] MEDS ORDERED: dilTIAZem Inj 125 MG in Sodium Chlor 0.9% Inj 100 ML IV.CONT PRN (11:02)
[2018-03-18 11:18] LABS: Baso # (Auto) 0.1 th/mm3 (0.0-0.2); Baso % (Auto) 0.7 % (0.0-2.0); Eos # (Auto) 0.1 th/mm3 (0.0-0.4); Eos % (Auto) 0.8 % (0.0-4.0); Hematocrit 49.8 % (39.0-51.0); Hemoglobin 16.2 gm/dL (13.0-17.0); Lymph % (Auto) 7.3 % (9.0-44.0); Mean Corpuscular HGB Conc 32.6 % (32.0-36.0); Mean Platelet Volume 10.6 fL (7.0-11.0); Mono % (Auto) 6.8 % (0.0-8.0); Neut % (Auto) 84.4 % (16.0-70.0); Platelet Count 229 th/mm3 (150-450); Red Cell Distribution Width 14.5 % (11.6-17.2); White Blood Count 14.2 th/mm3 (4.0-11.0)
[2018-03-18 11:26] LABS: Activated Partial Thrombo Time 32.4 sec (24.3-30.1); INR 1.6 Ratio; Prothrombin Time 15.9 sec (9.8-11.6)
--- NOTE | 2018-03-18 11:29 | XR ---
EXAM DATE: 03/18/2018 11:14 AM EDT AGE/SEX: 72 years / Male INDICATIONS: Awoke this morning with a rapid, pounding heart beat CLINICAL DATA: This is the patient's initial encounter. Patient reports that signs and symptoms have been present for 1 day and indicates a pain score of 0/10. MEDICAL/SURGICAL HISTORY: Chronic obstructive pulmonary disease. None. COMPARISON: POI, XR CHEST PA AND LAT, 03/15/2018. . FINDINGS: A single AP view of the chest demonstrates the lungs to be symmetrically aerated without evidence of mass, infiltrate or effusion. Minimal basilar atelectasis. The cardiomediastinal contours are unremar kable. Osseous structures are intact. CONCLUSION: Minimal basilar atelectasis. No consolidation or effusion. Electronically signed by: Tobin Mendoza MD 03/18/2018 11:28 AM EDT
[2018-03-18 12:03] LABS: Alanine Aminotransferase 25 U/L (12-78); Albumin 3.4 g/dL (3.4-5.0); Alkaline Phosphatase 67 U/L (45-117); Anion Gap 10 meq/L (5-15); Aspartate Aminotransferase 22 U/L (15-37); Blood Urea Nitrogen 15 mg/dL (7-18); Calcium 8.7 mg/dL (8.5-10.1); Carbon Dioxide 24.7 meq/L (21.0-32.0); Chloride 105 meq/L (98-107); Creatine Kinase 188 U/L (39-308); Glomerular Filtration Rate 67 mL/min (>89); Glucose,Random 145 mg/dL (74-106); Sodium 140 meq/L (136-145); Total Protein 7.3 g/dL (6.4-8.2)
[2018-03-18 12:06] LABS: Potassium 4.2 meq/L (3.5-5.1)
[2018-03-18 12:09] VITALS: RESP 18
[2018-03-18 12:18] LABS: Creatine Kinase MB 2.4 ng/mL (0.5-3.6)
--- NOTE | 2018-03-18 12:37 | ED ---
HPI General Chief complaint: Recheck/Abnormal Lab/Rx Stated complaint: Medical Time Seen by Provider: 03/18/18 10:27 History of Present Illness HPI narrative: This is a 72-year-old male with history of atrial fibrillation, COPD, who presents today with points of elevated heart rate. The patient was taken off of his metoprolol yesterday and started on diltiazem. Patient states he checked his pulse this morning and noted it was 175. He states he called his doctor at [facility] in [place] who told him to take his metoprolol. The patient did he reports that his heart rate came into the 160s however was still high. He now presents here today. He denies any chest pain, chest pressure. He denies feeling any palpitations. He denies any acute shortness of breath. There are no other complaints at time of examination. Related Data Home Medications Medication Instructions Recorded Confirmed albuterol sulfate 1 puff INHALATION Q4-6H PRN 03/18/18 03/18/18 alprazolam 1 mg PO BID 03/18/18 03/18/18 aspirin [Aspirin Low Dose] 81 mg PO DAILY 03/18/18 03/18/18 budesonide 1 inh INHALATION Q12H 03/18/18 03/18/18 bumetanide 1 mg PO DAILY 03/18/18 03/18/18 buspirone 10 mg PO TID 03/18/18 03/18/18 clomiphene citrate 50 mg PO DAILY 03/18/18 03/18/18 diltiazem HCl 120 mg PO DAILY 03/18/18 03/18/18 ergocalciferol (vitamin D2) 50,000 unit PO QWEEK 03/18/18 03/18/18 [Vitamin D2] ipratropium-albuterol 3 ml INHALATION Q6-8H PRN 03/18/18 03/18/18 losartan 100 mg PO DAILY 03/18/18 03/18/18 metoprolol tartrate 50 mg PO BID 03/18/18 03/18/18 metoprolol tartrate 50 mg PO BID 03/18/18 03/18/18 prednisone 5 mg PO DAILY 03/18/18 03/18/18 quetiapine 25 mg PO HS 03/18/18 03/18/18 simvastatin 40 mg PO QPM 03/18/18 03/18/18 theophylline 400 mg PO Q24H 03/18/18 03/18/18 warfarin 5 mg PO DAILY 03/18/18 03/18/18 Allergies Allergy/AdvReac Type Severity Reaction Status Date / Time No Known Allergies Allergy Verified 03/18/18 10:32 Review of Systems ROS: all other systems reviewed are negative Constitutional Denies chills and Denies fever(s) Eyes Reports system reviewed and no additional complaints, except as docu ENT Reports system reviewed and no additional complaints, except as docu Cardiovascular Denies chest pain, Reports rapid heart rate and Denies dyspnea Respiratory Denies chest congestion, Denies cough and Denies dyspnea Gastrointestinal Denies abdominal pain, Denies nausea and Denies vomiting Genitourinary Reports system reviewed and no additional complaints, except as [facility] Musculoskeletal Reports system reviewed and no additional complaints, except as [facility] Neurologic Reports system reviewed and no additional complaints, except as docu PMFSH Social History Social History Recent Travel in [facility] within the Last 8 Weeks: No Recent Out of Country Travel within the Last 8 Weeks: No Exam Narrative Exam Narrative: GENERAL: Well-developed well-nourished male in no acute respiratory distress. SKIN: Focused skin assessment warm/dry. HEAD: Atraumatic. Normocephalic. EYES: No scleral icterus. No injection or drainage. ENT: No nasal bleeding or discharge. Mucous membranes pink and moist. NECK: Trachea midline. No JVD. CARDIOVASCULAR: Irregularly irregular. Rate in the 140s. No obvious murmur appreciated RESPIRATORY: No accessory muscle use. Clear to auscultation. Breath sounds equal bilaterally. GASTROINTESTINAL: Abdomen soft, non-tender, nondistended. MUSCULOSKELETAL: No obvious deformities. No clubbing. No cyanosis. No edema. NEUROLOGICAL: Awake and alert. No obvious cranial nerve deficits. Motor grossly within normal limits. Normal speech. Course Initial Documented Vital Signs Temperature 97.8 F 03/18/18 10:14 Pulse Rate 108 H 03/18/18 10:14 Respiratory Rate 20 03/18/18 10:14 Blood Pressure 127/64 03/18/18 10:14 Pulse Oximetry 90 L 03/18/18 10:14 Last Documented Vital Signs Temperature 97.8 F 03/18/18 10:14 Pulse Rate 71 03/18/18 12:08 Respiratory Rate 18 03/18/18 12:08 Blood Pressure 91/47 L 03/18/18 12:08 Pulse Oximetry 94 L 03/18/18 12:08 Medical Decision Making MDM Narrative Medical decision making narrative: 72-year-old male with history of atrial fibrillation, who had his metoprolol stopped yesterday and started on diltiazem. Patient had a heart rate in the 140s here. He reports it was 175 at home. The patient was given a bolus of diltiazem. He was also started on a drip. The patient's heart rate did decrease to the 70s and 80s however his blood pressure dropped into the high 80s systolic. We have stopped the diltiazem drip. He will be admitted to the [facility]. Case was discussed with the senior resident and communications marketing intern. He will be placed on a monitored floor. Medical Screen Exam Complete: Yes Emergency Medical Condition: Yes Differential Diagnosis Differential Diagnosis: Paroxysmal A. fib versus sinus tach versus metabolic derangement Lab Data Result diagrams: 03/18/18 10:40 03/18/18 10:40 Lab Results 03/18/18 03/18/18 03/18/18 Range/Units 10:40 10:40 10:40 WBC 14.2 H (4.0-11.0) th/mm3 RBC 5.60 (4.50-5.90) mil/mm3 Hgb 16.2 (13.0-17.0) gm/dL Hct 49.8 (39.0-51.0) % MCV 89.0 (80.0-100.0) fL MCH 29.0 (27.0-34.0) pg MCHC 32.6 (32.0-36.0) % RDW 14.5 (11.6-17.2) % Plt Count 229 (150-450) th/mm3 MPV 10.6 (7.0-11.0) fL Neut % (Auto) 84.4 H (16.0-70.0) % Lymph % (Auto) 7.3 L (9.0-44.0) % [place] % (Auto) 6.8 (0.0-8.0) % Eos % (Auto) 0.8 (0.0-4.0) % Baso % (Auto) 0.7 (0.0-2.0) % Neut # (Auto) 12.0 H (1.8-7.7) th/mm3 Lymph # (Auto) 1.0 (1.0-4.8) th/mm3 [place] # (Auto) 1.0 H (0.0-0.9) th/mm3 Eos # (Auto) 0.1 (0.0-0.4) th/mm3 Baso # (Auto) 0.1 (0.0-0.2) th/mm3 WBC Differential . Differential Comment Auto diff final PT 15.9 H (9.8-11.6) sec INR 1.6 Ratio APTT 32.4 H (24.3-30.1) sec Sodium 140 (136-145) meq/L Potassium 4.2 (3.5-5.1) meq/L Chloride 105 (98-107) meq/L Carbon Dioxide 24.7 (21.0-32.0) meq/L Anion Gap 10 (5-15) meq/L BUN 15 (7-18) mg/dL Creatinine 1.08 (0.60-1.30) mg/dL Estimated GFR 67 L (>89) mL/min Random Glucose 145 H (74-106) mg/dL Calcium 8.7 (8.5-10.1) mg/dL Total Bilirubin 0.5 (0.2-1.0) mg/dL AST 22 (15-37) U/L ALT 25 (12-78) U/L Alkaline Phosphatase 67 (45-117) U/L Total Creatine Kinase 188 (39-308) U/L CK-MB (CK-2) 2.4 (0.5-3.6) ng/mL Troponin I Less than 0.02 L (0.02-0.05) ng/mL Total Protein 7.3 (6.4-8.2) g/dL Albumin 3.4 (3.4-5.0) g/dL Imaging Data Radiologist's impression: Chest X-Ray 03/18/18 10:29 CONCLUSION: Minimal basilar atelectasis. No consolidation or effusion. Discharge Plan Discharge Disposition Patient Disposition: 30 Still Patient Discharge Details Diagnosis: Atrial fibrillation with rapid ventricular response, Subtherapeutic international normalized ratio (INR), Hypotension Physicians Team ED Provider: Miguel Krishnamurthy Primary Care Provider: Rohit Damian Attending Provider: Russ Tomlinson Discharge Interventions Interventions: Vital Signs Last Done: 03/18/18 12:01 Status ED Status: Admitted Patient
--- NOTE | 2018-03-18 13:06 | P.HPFP ---
History of Present Illness Primary Care Physician: Rohit Damian MD History of Present Illness: This patient is a 72-year-old male with history of obstructive sleep apnea, hypertension, COPD and anxiety who presents the ED after having a heart rate of 170 at home. Patient reports that he was previously on metoprolol but it was switched to diltiazem yesterday by his primary care physician due to rate issues. Patient took his first dose of diltiazem yesterday and reports that in the evening he began to feel his heart pounding. He reports that this continued throughout the evening whenever he became active but subsided once he rested. He reports the pounding was directly over the middle of his sternum and did not radiate. The best way he can describe the sensation was as pounding. This continued onto the evening but subsided once he laid down to go to sleep. He reports having a restful night and upon awakening and getting up began to feel a sensation of pounding in his chest again. The patient took his morning medications and within a short walk down the hallway felt the pounding once again. At this point patient took his blood pressure which was normal but his pulse was 175. At this point the patient called his primary care doctor at the [facility] which told him to take 50 mg of metoprolol. After this did not resolve his issues he was told to come to the ED. He reports being able to walk in without issues. Patient denies any chest pain, exacerbation of shortness of breath, abdominal pain, lightheadedness, changes in vision, diarrhea, constipation, nausea, vomiting, fevers or chills. 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 Byrd. PHx: HTN, COPD, Anxiety, PASQUALE, untreated umbilical hernia, GERD SHx: Right sided inguinal hernia repair in 1966 FHx: None Med: Home O2 2 L at night during sleep, albuterol, alprazolam, aspirin, budesonide, bumetanide, buspirone, clomiphene, diltiazem, ergocalciferol, ipratropium albuterol, losartan, metoprolol, prednisone, quetiapine, simvastatin , theophylline, warfarin Allergies: NKA Social: for 49 years, he has 2 children, 1 boy and 1 girl who are both healthy. He has 4 grand kids, and 1 great grandchild. 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 During his service he was stationed in [place], [place], [place], and [place]. 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 Patient has lived in [place] for the last 9 years. Smoked cigarettes for 30 years at a pack week, drinks about 5 beers once a week or every 2 weeks. No drugs ever. Code: FULL CODE, his Sharon Currie is a decision maker if patient is in capacity - Diagnosis (1) Atrial fibrillation with rapid ventricular response (2) Hypertension (3) COPD (chronic obstructive pulmonary disease) (4) PASQUALE (obstructive sleep apnea) (5) Anxiety (6) Nutrition, metabolism, and development symptoms Inpatient Certification: I certify that the inpatient services were ordered in accordance with Medicare regulations governing the order. This includes certification that hospital inpatient services are reasonable and necessary and in the case of services not specified as inpatient-only under 42 CFR 419.22(n), that they are appropriately provided as inpatient services in accordance to with the 2-midnight benchmark under 43 CFR 412.3(e) Estimated Total Length of Stay (Days): 2 Plans for Post Hospital Care: Home Review of Systems Constitutional: Denies chills, Denies fever(s), Denies headache(s), Denies dizziness, Eyes: Denies change in vision, Denies double vision, Denies blurry vision Cardiovascular: Denies chest pain, reports pounding right into the sternum that is exacerbated by activity and relieved by rest Respiratory: Patient experiences shortness of breath due to long-standing COPD but has had no exacerbation recently, sleeps with home O2 at night with 2 L Gastrointestinal: Denies abdominal pain, Denies constipation, Denies loose stools, Denies nausea, Denies vomiting Genitourinary: Denies difficulty urinating, Denies painful urination, Denies urinary frequency, Denies blood in urine PMFSH - History History Provided By: Patient - Medical History Medical History: Medical History (Last Updated 03/18/18 @ 13:54 by Carmen Arnett) COPD (chronic obstructive pulmonary disease) Hernia Hypertension On home oxygen therapy Sleep apnea - Travel History Recent Travel in the [place] Within the Last 8 Weeks: No Recent Travel Out of the Country Within the Last 8 Weeks: No Medications and Allergies Active Medications: Active Medications Diltiazem HCl 125 mg/ Sodium (Chloride) 125 mls @ 5 mls/hr IV.CONT TITRATE PRN ; Protocol PRN Reason: Per Protocol Last Admin: 03/18/18 11:22 Dose: 5 mg/hr, 5 mls/hr Sodium Chloride (Ns Flush) 2 ml IV.FLUSH UNSCH PRN PRN Reason: FLUSH AFTER USING IV ACCESS Allergies Allergy/AdvReac Type Severity Reaction Status Date / Time No Known Allergies Allergy Verified 03/18/18 10:32 Home Medications Medication Instructions Recorded Confirmed Type albuterol sulfate 1 puff INHALATION Q4-6H PRN 03/18/18 03/18/18 History alprazolam 1 mg PO BID 03/18/18 03/18/18 History aspirin [Aspirin Low Dose] 81 mg PO DAILY 03/18/18 03/18/18 History budesonide 1 inh INHALATION Q12H 03/18/18 03/18/18 History bumetanide 1 mg PO DAILY 03/18/18 03/18/18 History buspirone 10 mg PO TID 03/18/18 03/18/18 History clomiphene citrate 50 mg PO DAILY 03/18/18 03/18/18 History diltiazem HCl 120 mg PO DAILY 03/18/18 03/18/18 History ergocalciferol (vitamin D2) 50,000 unit PO QWEEK 03/18/18 03/18/18 History [Vitamin D2] ipratropium-albuterol 3 ml INHALATION Q6-8H PRN 03/18/18 03/18/18 History losartan 100 mg PO DAILY 03/18/18 03/18/18 History metoprolol tartrate 50 mg PO BID 03/18/18 03/18/18 History metoprolol tartrate 50 mg PO BID 03/18/18 03/18/18 History prednisone 5 mg PO DAILY 03/18/18 03/18/18 History quetiapine 25 mg PO HS 03/18/18 03/18/18 History simvastatin 40 mg PO QPM 03/18/18 03/18/18 History theophylline 400 mg PO Q24H 03/18/18 03/18/18 History warfarin 5 mg PO DAILY 03/18/18 03/18/18 History Exam Vital signs: Vital Signs 03/18/18 10:14 03/18/18 10:47 03/18/18 11:09 Temperature 97.8 F Pulse Rate 108 H 140 H 145 H Respiratory Rate 20 20 Blood Pressure 127/64 103/53 L Pulse Oximetry 90 L 96 90 L 03/18/18 11:16 03/18/18 12:01 03/18/18 12:08 Temperature Pulse Rate 66 74 71 Respiratory Rate 15 15 18 Blood Pressure 91/49 L 91/47 L 91/47 L Pulse Oximetry 90 L 92 L 94 L Intake & Output 03/17/18 03/18/18 03/18/18 18:59 06:59 18:59 Weight 125.191 kg Narrative: GENERAL: Well-nourished, obese well-developed patient. No acute distress. SKIN: Warm and dry. No rash. EYES: No scleral icterus. No injection or drainage. PERRLA. EOMI. HENT: Normocephalic. Atraumatic. Slightly dry mucous membrane. NECK: Supple, trachea midline. No JVD or lymphadenopathy. CARDIOVASCULAR: Irregular irregular rhythm with no obvious murmurs RESPIRATORY: Breath sounds decreased in all lung bilaterally with no accessory muscle use. No wheezing appreciated. GASTROINTESTINAL: Obese, abdomen soft, non-tender, nondistended. BS WNL. 2 cm umbilical hernia that is reducible. MUSCULOSKELETAL: 1+ nonpitting edema in both lower extremities bilaterally with some evidence of venous stasis and erythema around the ankles. Patient reports is actually pretty good for him and he normally has more swelling in his ankles. Strength grossly WNL. BACK: Nontender without obvious deformity. No CVA tenderness. NEURO/PSYCH: Afocal. Awake, alert, and oriented x3. Results - Labs Result diagrams: 03/18/18 10:40 03/18/18 10:40 Abnormal lab results 03/18/18 03/18/18 03/18/18 Range/Units 10:40 10:40 10:40 WBC 14.2 H (4.0-11.0) th/mm3 Neut % (Auto) 84.4 H (16.0-70.0) % Lymph % (Auto) 7.3 L (9.0-44.0) % Neut # (Auto) 12.0 H (1.8-7.7) th/mm3 [place] # (Auto) 1.0 H (0.0-0.9) th/mm3 PT 15.9 H (9.8-11.6) sec APTT 32.4 H (24.3-30.1) sec Estimated GFR 67 L (>89) mL/min Random Glucose 145 H (74-106) mg/dL Troponin I Less than 0.02 L (0.02-0.05) ng/mL Short CBC 03/18/18 Range/Units 10:40 WBC 14.2 H (4.0-11.0) th/mm3 Hgb 16.2 (13.0-17.0) gm/dL Hct 49.8 (39.0-51.0) % Plt Count 229 (150-450) th/mm3 BMP 03/18/18 10:40 Sodium 140 Potassium 4.2 Chloride 105 Carbon Dioxide 24.7 BUN 15 Creatinine 1.08 Calcium 8.7 Cardiac Enzymes 03/18/18 Range/Units 10:40 Total Creatine Kinase 188 (39-308) U/L CK-MB (CK-2) 2.4 (0.5-3.6) ng/mL Troponin I Less than 0.02 L (0.02-0.05) ng/mL Liver Function 03/18/18 Range/Units 10:40 Total Bilirubin 0.5 (0.2-1.0) mg/dL AST 22 (15-37) U/L ALT 25 (12-78) U/L Alkaline Phosphatase 67 (45-117) U/L Albumin 3.4 (3.4-5.0) g/dL - Imaging Impressions Chest X-Ray 03/18/18 10:29 CONCLUSION: Minimal basilar atelectasis. No consolidation or effusion. Caprini VTE Risk Assessment Caprini VTE Risk Assessment: No/Low Risk (score <= 1) Caprini Risk Assessment Model: Point Value = 1 Point Value = 2 Point Value = 3 Point Value = 5 Age 41-60 Minor surgery BMI > 25 kg/m2 Swollen legs Varicose veins or History of unexplained or recurrent spontaneous Oral contraceptives or hormone replacement Sepsis (< 1 month) Serious lung disease, including pneumonia (< 1 month) Abnormal pulmonary function Acute myocardial infarction Congestive heart failure (< 1 month) History of inflammatory bowel disease Medical patient at bed rest Age 61-74 Arthroscopic surgery Major open surgery (> 45 min) Laparoscopic surgery (> 45 min) Malignancy Confined to bed (> 72 hours) Immobilizing plaster cast Central venous access Age >= 75 History of VTE Family history of VTE Factor V Leiden Prothrombin [id number] Lupus anticoagulant Anticardiolipin antibodies Elevated serum homocysteine Heparin-induced thrombocytopenia Other congenital or acquired thrombophilia Stroke (< 1 month) Elective arthroplasty Hip, pelvis, or leg fracture Acute spinal cord injury (< 1 month) Prophylaxis Regimen: Total Risk Factor Score Risk Level Prophylaxis Regimen 0-1 Low Early ambulation 2 Moderate Order ONE of the following: *Sequential Compression Device (SCD) *Heparin 5000 units SQ BID 3-4 Higher Order ONE of the following medications: *Heparin 5000 units SQ TID *Enoxaparin/Lovenox 40 mg SQ daily (WT < 150 kg, CrCl > 30 mL/min) *Enoxaparin/Lovenox 30 mg SQ daily (WT < 150 kg, CrCl > 10-29 mL/min) *Enoxaparin/Lovenox 30 mg SQ BID (WT < 150 kg, CrCl > 30 mL/min) AND/OR *Sequential Compression Device (SCD) 5 or more Highest Order ONE of the following medications: *Heparin 5000 units SQ TID (Preferred with Epidurals) *Enoxaparin/Lovenox 40 mg SQ daily (WT < 150 kg, CrCl > 30 mL/min) *Enoxaparin/Lovenox 30 mg SQ daily (WT < 150 kg, CrCl > 10-29 mL/min) *Enoxaparin/Lovenox 30 mg SQ BID (WT < 150 kg, CrCl > 30 mL/min) AND *Sequential Compression Device (SCD) Assessment and Plan - Assessment (1) Atrial fibrillation with rapid ventricular response Code(s): I48.91 - Unspecified atrial fibrillation Status: Acute Plan: Patient has atrial fibrillation with RVR. Patient had a pulse of 140 in the emergency department. Patient received a bolus of diltiazem as well as put on a diltiazem drip which was discontinued due to hypotension. Patient currently rate controlled at 74 bpm. Patient previously on warfarin with a subtherapeutic INR of 1.6. -Continue home warfarin 5 mg daily -Diltiazem drip as needed for rate control -Restart home rate control medications (Cardizem) tomorrow -Monitor on telemetry -Monitor vitals (2) Hypertension Code(s): I10 - Essential (primary) hypertension Status: Acute Plan: Patient previously diagnosed with hypertension and on outpatient diltiazem and losartan. 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 -Duo nebs as needed -Continue home theophylline -Hold home prednisone -2L oxygen via nasal cannula at night for sleep (4) PASQUALE (obstructive sleep apnea) Code(s): G47.33 - Obstructive sleep apnea (adult) (pediatric) Status: Acute Plan: Patient reports being diagnosed with obstructive sleep apnea but does not sleep at home with CPAP due to issues with masks. Patient not interested in sleeping with CPAP while inpatient but does want to continues home O2 at night. -Continue 2 L of oxygen via nasal cannula at night for sleep (5) Anxiety Code(s): F41.9 - Anxiety disorder, unspecified Status: Acute Plan: She reports recently being diagnosed with anxiety at the [facility]. His anxiety is not service related. -Patient may continue his home quetiapine, alprazolam, and Buspirone (6) Nutrition, metabolism, and development symptoms Code(s): R63.8 - Other symptoms and signs concerning food and fluid intake Status: Acute Plan: Fluids:no IV fluids indicated at this time Electrolytes: Replete as needed Nutrition: Cardiac diet DVT prophylaxis: Patient currently on warfarin, SCDs
--- NOTE | 2018-03-18 16:33 | ECHRPT ---
CONCLUSIONS BP: / HR: Rhythm: MEASUREMENTS (Male / Female) Normal Values Technical Quality: 2D ECHO LV Diastolic Diameter PLAX 5.0 cm 4.2 - 5.9 / 3.9 - 5.3 cm LV Systolic Diameter PLAX 3.5 cm IVS Diastolic Thickness 0.9 cm 0.6 - 1.0 / 0.6 - 0.9 cm LVPW Diastolic Thickness 1.2 cm 0.6 - 1.0 / 0.6 - 0.9 cm LV Relative Wall Thickness 0.4 RV Internal Dim ED PLAX 2.5 cm LVOT Diameter 2.1 cm Aortic Root Diameter 2.4 cm LA Systolic Diameter LX 2.9 cm 3.0 - 4.0 / 2.7 - 3.8 cm LV Ejection Fraction MOD 4C 52.1 % LV Ejection Fraction 4C AL 54.2 % M-MODE Aortic Root Diameter MM 2.9 cm LA Systolic Diameter MM 4.4 cm LA Ao Ratio MM 1.5 AV Cusp Separation MM 2.0 cm DOPPLER AV Peak Velocity 100.0 cm/s AV Peak Gradient 4.0 mmHg LVOT Peak Velocity 78.5 cm/s LVOT Peak Gradient 2.5 mmHg AV Area Cont Eq pk 2.7 cm Mitral E Point Velocity 94.3 cm/s LV E' Lateral Velocity 6.5 cm/s Mitral E to LV E' Lateral Ratio 14.4 LV E' Septal Velocity 9.9 cm/s Mitral E to LV E' Septal Ratio 9.5 TR Peak Velocity 205.0 cm/s TR Peak Gradient 16.8 mmHg Right Atrial Pressure 10.0 mmHg Pulmonary Artery Systolic Pressu 26.8 mmHg Right Ventricular Systolic Press 26.8 mmHg PV Peak Velocity 77.4 cm/s PV Peak Gradient 2.4 mmHg FINDINGS LEFT VENTRICLE Normal left ventricular size. Wall thickness is normal. The left ventricular systolic function is normal with an estimated ejection fraction in the range of 60-65%. RIGHT VENTRICLE Normal right ventricular size and systolic function. LEFT ATRIUM The left atrial size is mildly dilated. RIGHT ATRIUM The right atrial size is normal. AORTA The aortic root and proximal ascending aorta are normal in size on limited imaging. MITRAL VALVE Trace mitral valve regurgitation. AORTIC VALVE Mild aortic valve stenosis. TRICUSPID VALVE There is trace tricuspid valve regurgitation. The estimated pulmonary arterial pressure is 27 mmHg. PULMONARY VALVE The pulmonary valve is not well visualized. VESSELS The inferior vena cava is normal in size. PERICARDIUM No pericardial effusion. Ochoa Collier MD (Electronically Signed) Final Date:18 March 2018 16:33
[2018-03-18] MEDS: dilTIAZem 60 MG Tablet PO SCH ×2 (17:53→20:19)
--- NOTE | 2018-03-18 19:45 | MB ---
cc: Ochoa Collier MD DATE: 03/18/2018 REASON FOR CONSULTATION: Evaluate uncontrolled atrial fibrillation. HISTORY OF PRESENT ILLNESS: Kishan Currie is a 72-year-old man with a history of paroxysmal atrial fibrillation, morbid obesity, hypertension, diabetes and previous abnormal nuclear stress test. He sees my colleague, Dr. Byrd and also is followed by primary care physician at the [facility] by Dr. Damian. He was last seen by Dr. Byrd 10/04/2017. At that time, he was on metoprolol 25 mg p.o. b.i.d. and warfarin. His INRs have not been well controlled. His INR was therapeutic 02/18/2018 at 2.2. By 02/25/2018 it was only 1.6, on 03/11/2018 only 1.3 and now on this admission only 1.6. The patient went to see his [facility] doctor 9 days ago. His heart rate was elevated, but he did not have an EKG done. We do not know any more than the fact that his heart rate was elevated. The [facility] doctor stopped his metoprolol and initiated Diltiazem 120 mg daily. His last dose of metoprolol was 2 days ago and he started the diltiazem. Yesterday he noticed just with walking around he had rapid pounding in his chest and this morning he noticed the same. The [facility] doctor told him to take a dose of metoprolol this morning, which he did. He then came to the ER and he was found to be in atrial fibrillation with rapid ventricular response. His rate came down with IV Cardizem bolus, but during the drip his blood pressure dropped, so the drip has been turned off. The patient denies any chest pain. He has chronic shortness of breath. It has actually got a little better since he has lost weight. He was [address] Byrd and he states his weight is currently down to 277 pounds. I asked him how he did that and he says he is eating half of the portion size that he was eating before. Other than the rapid pounding in his chest, he really is not noticing any other symptoms. He has had some peripheral edema in the past, but it has gone away now that he has lost weight. He has had a previous workup with an echocardiogram and a nuclear stress test. Echocardiogram was done 08/23/2017 and showed a left atrial size of 4.1, ejection fraction of 55-60% and slight aortic valve sclerosis. He had a nuclear stress test 09/07/2017 showing a moderate inferior defect with partial reperfusion. He was not having angina, so the decision was made to manage this medically. It is unclear if this is a diaphragmatic attenuation artifact or true ischemia. PAST MEDICAL HISTORY: Includes anxiety, chronic fatigue syndrome, COPD, suspected coronary artery disease, type 2 diabetes mellitus, hyperlipidemia, hypertension, morbid obesity, paroxysmal atrial fibrillation and sleep apnea. For sleep apnea, he was not able to tolerate CPAP. He then used a dental appliance and has not had success with that. He has lately been on 2 liters of oxygen at nighttime. PAST SURGICAL HISTORY: Includes hernia repair. MEDICATIONS: 1. Inhalers consisting of albuterol and ipratropium as well as Symbicort. 2. He is on Alprazolam 2 mg p.r.n. 3. Aspirin enteric coated 81 mg daily. 4. Bumex 1 mg daily. 5. Losartan 100 mg daily. 6. Metoprolol he has been taken off. 7. Prednisone 5 mg daily. 8. Simvastatin 40 mg [facility]. 9. He has been on Theophylline 200 mg b.i.d. 10. Trazodone 50 mg at bedtime. 11. Warfarin. 12. He was also recently started on BuSpar and quetiapine. ALLERGIES: NONE KNOWN. FAMILY HISTORY: Noncontributory. SOCIAL HISTORY: Quit smoking 5 years ago. He says he was a casual smoker prior to that. He will have about 5 beers once every week or two. 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 REVIEW OF SYSTEMS: He bleeds easily. Remaining systems negative. PHYSICAL EXAMINATION: GENERAL: Shows a morbidly obese, pleasant, well-developed, white male in no acute distress. VITAL SIGNS: Charted. HEENT: Unremarkable. NECK: No JVD. No bruits. CHEST: Shows diminished breath sounds. CARDIAC: Shows S1 and S2, irregular rate and rhythm, 1/6 systolic ejection murmur. ABDOMEN: Obese, soft, nontender. Cannot appreciate masses or organomegaly. EXTREMITIES: Show some mild venous insufficiency changes, but no edema. Pulses are intact. ELECTROCARDIOGRAM: Showed atrial fibrillation with rapid ventricular response and minor nonspecific ST-T wave changes. LABORATORY DATA: Laboratories are charted. His hematocrit is 49.8 with an elevated white count at 14,200. Creatinine is 1.08, glucose 145. Troponin less than 0.02. Liver tests are normal. INR is only 1.6. IMPRESSION: Paroxysmal atrial fibrillation with rapid ventricular response. The onset of the atrial fibrillation is unclear. His heart rate was elevated both when he saw the [facility] and when he saw his primary care doctor in the past 9 days. Neither did an electrocardiogram so there is no way to tell for sure. Things seem to have been a bit exacerbated by having him stop his beta brittany. He is not symptomatic now, but his rate is still not optimally controlled. His INRs have been poorly controlled with warfarin and he should be taken off and put on a new oral anticoagulant because of poor control. RECOMMENDATIONS: 1. Discontinue warfarin and start Eliquis 5 mg p.o. b.i.d. 2. Continue metoprolol 25 b.i.d. 3. Continue p.o. diltiazem currently 60 mg every 6 hours. Once we have a better idea on his dose requirements, then we can convert it to once a day form. 4. Hold the losartan since he has had some low blood pressure readings. 5. We will put him on oxygen 2 liters at night, but if there is a way to initiate CPAP, that would be better. We will defer that to the primary management team. Hopefully, we can rate control him and have him anticoagulated with Eliquis and then in a few weeks refer him to my associate, Dr. Chambers, for atrial fibrillation ablation. Further therapy to be determined. MD ROHINI Loving/trudy , 03:38 PM , 03:50 PM
[2018-03-18] MEDS: Metoprolol Tartrate 25 MG Tablet PO SCH (20:19)
[2018-03-18] MEDS: Theophylline ER 24 HR 200 MG Capsule PO SCH (20:27)
[2018-03-18] MEDS ORDERED: QUEtiapine 25 MG Tablet PO SCH (21:00)
[2018-03-18] MEDS ORDERED: PULMICORT INH SCH (21:00)
[2018-03-19 07:29] LABS: Baso # (Auto) 0.1 th/mm3 (0.0-0.2); Baso % (Auto) 1.2 % (0.0-2.0); Eos # (Auto) 0.3 th/mm3 (0.0-0.4); Eos % (Auto) 2.9 % (0.0-4.0); Hematocrit 47.2 % (39.0-51.0); Hemoglobin 15.2 gm/dL (13.0-17.0); Lymph % (Auto) 17.7 % (9.0-44.0); Mean Corpuscular HGB Conc 32.2 % (32.0-36.0); Mean Corpuscular Hemoglobin 28.9 pg (27.0-34.0); Mean Corpuscular Volume 89.9 fL (80.0-100.0); Mean Platelet Volume 9.8 fL (7.0-11.0); Mono # (Auto) 1.1 th/mm3 (0.0-0.9); Mono % (Auto) 10.2 % (0.0-8.0); Neut # (Auto) 7.5 th/mm3 (1.8-7.7); Platelet Count 194 th/mm3 (150-450); Red Blood Count 5.25 mil/mm3 (4.50-5.90); Red Cell Distribution Width 14.5 % (11.6-17.2); White Blood Count 11.1 th/mm3 (4.0-11.0)
[2018-03-19 07:48] LABS: Calcium 8.2 mg/dL (8.5-10.1); Carbon Dioxide 29.3 meq/L (21.0-32.0); Potassium 4.8 meq/L (3.5-5.1)
[2018-03-19] MEDS ORDERED: Theophylline ER 24 HR 200 MG Capsule PO SCH ×2 (08:00)
[2018-03-19] MEDS ORDERED: CLOMIPHENE CITRATE PO SCH (09:00)
[2018-03-19] MEDS ORDERED: predniSONE 5 MG Tablet PO SCH (09:00)
[2018-03-19 09:22] VITALS: BP 165/85; TEMP 97.5
[2018-03-19 09:44] VITALS: O2SAT 93
[2018-03-19] MEDS ORDERED: dilTIAZem CD 240 MG Capsule PO SCH (09:45)
--- NOTE | 2018-03-19 09:46 | P.PNCA ---
Subjective Interval history: No complaints Medications and Allergies Active Medications: Active Medications Albuterol (Ventolin Hfa Inh) 1 puff INH Q4H PRN PRN Reason: BRONCHOSPASM Albuterol (Duoneb Neb (Prn)) 1 ampul INH Q6HR NEB PRN PRN Reason: SHORTNESS OF BREATH Alprazolam (Xanax) 1 mg PO BID PRN PRN Reason: ANXIETY Last Admin: 03/19/18 00:47 Dose: 1 mg Apixaban (Eliquis) [address] [facility] Last Admin: 03/18/18 20:19 Dose: 5 mg Aspirin (Ecotrin) [address] [facility] Bumetanide (Bumex) [address] [facility] Buspirone HCl (Buspar) [address] [facility] Last Admin: 03/18/18 17:53 Dose: 10 mg Diltiazem HCl (Cardizem Cd 24hr) [address] [facility] Diltiazem HCl 125 mg/ Sodium (Chloride) 125 mls @ 5 mls/hr IV.CONT TITRATE PRN ; Protocol PRN Reason: Per Protocol Last Admin: 03/18/18 11:22 Dose: 5 mg/hr, 5 mls/hr Metoprolol Tartrate (Lopressor) [address] [facility] Last Admin: 03/18/18 20:19 Dose: 25 mg Patient Own Medication: Pulmicort ( Budesonide) 180mcg/Actuation Aerosol Powder [address] [facility] Patient Own Medication: Clomid ( Clomiphene Citrate) 50mg Tablet [address] [facility] Pravastatin Sodium (Pravachol) 80 mg PO DAILY@1800 [facility] Last Admin: 03/18/18 17:52 Dose: 80 mg Quetiapine Fumarate (Seroquel) [address] [facility] Last Admin: 03/18/18 20:20 Dose: 25 mg Sodium Chloride (Ns Flush) 2 ml IV.FLUSH UNSCH PRN PRN Reason: FLUSH AFTER USING IV ACCESS Theophylline (Cricket-24) [address] [facility] Last Admin: 03/18/18 20:27 Dose: Not Given Allergies Allergy/AdvReac Type Severity Reaction Status Date / Time No Known Allergies Allergy Verified 03/18/18 10:32 Home Medications Medication Instructions Recorded Confirmed Type albuterol sulfate 1 puff INHALATION Q4-6H PRN 03/18/18 03/18/18 History alprazolam 1 mg PO BID 03/18/18 03/18/18 History aspirin [Aspirin Low Dose] 81 mg PO DAILY 03/18/18 03/18/18 History budesonide 1 inh INHALATION Q12H 03/18/18 03/18/18 History bumetanide 1 mg PO DAILY 03/18/18 03/18/18 History buspirone 10 mg PO TID 03/18/18 03/18/18 History clomiphene citrate 50 mg PO DAILY 03/18/18 03/18/18 History diltiazem HCl 120 mg PO DAILY 03/18/18 03/18/18 History ergocalciferol (vitamin D2) 50,000 unit PO QWEEK 03/18/18 03/18/18 History [Vitamin D2] ipratropium-albuterol 3 ml INHALATION Q6-8H PRN 03/18/18 03/18/18 History losartan 100 mg PO DAILY 03/18/18 03/18/18 History metoprolol tartrate 50 mg PO BID 03/18/18 03/18/18 History metoprolol tartrate 50 mg PO BID 03/18/18 03/18/18 History prednisone 5 mg PO DAILY 03/18/18 03/18/18 History quetiapine 25 mg PO HS 03/18/18 03/18/18 History simvastatin 40 mg PO QPM 03/18/18 03/18/18 History theophylline 200 mg PO BID 03/18/18 03/18/18 History warfarin 5 mg PO DAILY 03/18/18 03/18/18 History Physical Exam Vital signs: Vital Signs 03/18/18 10:14 03/18/18 10:47 03/18/18 11:09 Temperature 97.8 F Pulse Rate 108 H 140 H 145 H Respiratory Rate 20 20 Blood Pressure 127/64 103/53 L Pulse Oximetry 90 L 96 90 L 03/18/18 11:16 03/18/18 12:01 03/18/18 12:08 Temperature Pulse Rate 66 74 71 Respiratory Rate 15 15 18 Blood Pressure 91/49 L 91/47 L 91/47 L Pulse Oximetry 90 L 92 L 94 L 03/18/18 13:45 03/18/18 15:09 03/18/18 15:42 Temperature Pulse Rate 88 99 H Respiratory Rate 18 18 Blood Pressure 107/57 L 132/85 Pulse Oximetry 94 L 94 L 94 L 03/18/18 16:00 03/18/18 16:56 03/18/18 20:00 Temperature 98.0 F 98.1 F Pulse Rate 81 68 65 Respiratory Rate 18 18 Blood Pressure 159/77 H 152/79 H Pulse Oximetry 94 L 92 L 03/18/18 21:00 03/18/18 22:00 03/18/18 23:00 Temperature Pulse Rate 70 73 69 Respiratory Rate Blood Pressure Pulse Oximetry 03/19/18 00:00 03/19/18 01:00 03/19/18 02:00 Temperature 98.3 F Pulse Rate 61 66 63 Respiratory Rate 18 Blood Pressure 121/60 Pulse Oximetry 93 L 03/19/18 03:00 03/19/18 04:00 03/19/18 04:04 Temperature 98 F Pulse Rate 64 60 60 Respiratory Rate 18 Blood Pressure 131/57 L Pulse Oximetry 93 L 03/19/18 05:04 03/19/18 06:00 03/19/18 08:00 Temperature 97.5 F L Pulse Rate 62 63 65 Respiratory Rate 18 Blood Pressure 165/85 H Pulse Oximetry 92 L Intake & Output 03/18/18 03/19/18 03/19/18 18:59 06:59 18:59 Intake Total 240 / 240 240 / 240 Output Total 450 / 450 700 / 700 Balance -210 / -210 -460 / -460 Weight 125.191 kg 125.1 kg Intake: Oral 240 / 240 240 / 240 Output: Urine 450 / 450 700 / 700 Other: # Voids 1 # Bowel Movements 0 Narrative: Alert, NAD Chest diminished BS CV S1S2 RRR, No M/G No edema Tele: converted to NSR yest, HR about 60 during sleep Results 03/19/18 07:07 03/19/18 07:07 Cardiac Enzymes 03/18/18 Range/Units 10:40 AST 22 (15-37) U/L CK-MB (CK-2) 2.4 (0.5-3.6) ng/mL Troponin I Less than 0.02 L (0.02-0.05) ng/mL Coagulation 03/18/18 Range/Units 10:40 PT 15.9 H (9.8-11.6) sec APTT 32.4 H (24.3-30.1) sec CBC 03/18/18 03/19/18 Range/Units 10:40 07:07 WBC 14.2 H 11.1 H (4.0-11.0) th/mm3 RBC 5.60 5.25 (4.50-5.90) mil/mm3 Hgb 16.2 15.2 (13.0-17.0) gm/dL Hct 49.8 47.2 (39.0-51.0) % Plt Count 229 194 (150-450) th/mm3 Neut # (Auto) 12.0 H 7.5 (1.8-7.7) th/mm3 Lymph # (Auto) 1.0 2.0 (1.0-4.8) th/mm3 [place] # (Auto) 1.0 H 1.1 H (0.0-0.9) th/mm3 Eos # (Auto) 0.1 0.3 (0.0-0.4) th/mm3 Baso # (Auto) 0.1 0.1 (0.0-0.2) th/mm3 Comprehensive Metabolic Panel 03/18/18 03/19/18 Range/Units 10:40 07:07 Sodium 140 141 (136-145) meq/L Potassium 4.2 4.8 (3.5-5.1) meq/L Chloride 105 107 (98-107) meq/L Carbon Dioxide 24.7 29.3 (21.0-32.0) meq/L BUN 15 14 (7-18) mg/dL Creatinine 1.08 0.95 (0.60-1.30) mg/dL Calcium 8.7 8.2 L (8.5-10.1) mg/dL AST 22 (15-37) U/L ALT 25 (12-78) U/L Alkaline Phosphatase 67 (45-117) U/L Total Protein 7.3 (6.4-8.2) g/dL Albumin 3.4 (3.4-5.0) g/dL Intake and Output 03/18/18 03/19/18 03/19/18 22:59 06:59 14:59 Intake Total 240 / 240 240 / 240 Output Total 700 / 700 Balance 240 / 240 -460 / -460 Intake: Oral 240 / 240 240 / 240 Output: Urine 700 / 700 Other: # Voids 1 # Bowel Movements 0 Weight 125.1 kg - Imaging and Cardiology Imaging: Impressions Chest X-Ray 03/18/18 10:29 CONCLUSION: Minimal basilar atelectasis. No consolidation or effusion. Assessment and Plan - Assessment (1) Morbid obesity Code(s): E66.01 - Morbid (severe) obesity due to excess calories Status: Acute Plan: Continue his weight loss program (2) Paroxysmal atrial fibrillation with rapid ventricular response Code(s): I48.0 - Paroxysmal atrial fibrillation Status: Acute Plan: Change Dilt to 240mg daily, Cont metop [address] Discuss [address] Sanchez as OP. (3) Hypertension Code(s): I10 - Essential (primary) hypertension Status: Acute Plan: Cont metop/losart/dilt (4) COPD (chronic obstructive pulmonary disease) Code(s): J44.9 - Chronic obstructive pulmonary disease, unspecified Status: Acute (5) PASQUALE (obstructive sleep apnea) Code(s): G47.33 - Obstructive sleep apnea (adult) (pediatric) Status: Acute Plan: Get on CPAP as OP (6) MCFP (current) use of anticoagulants Code(s): Z79.01 - MCFP (current) use of anticoagulants Status: Acute Plan: Poor INR control with warfarin. Changed to Eliquis 5mg bid
[2018-03-19] MEDS: Theophylline ER 24 HR 200 MG Capsule PO SCH (10:11)
[2018-03-19] MEDS: Metoprolol Tartrate 25 MG Tablet PO SCH (10:12)
[2018-03-19] MEDS: dilTIAZem 60 MG Tablet PO SCH (10:14)
[2018-03-19 13:00] VITALS: PULSE 80
--- NOTE | 2018-03-19 13:58 | P.PNFP ---
Subjective Interval history: 72 yo male with obesity, AFib admitted with AFib in RVR. Now being seen for f/u. Today he feels much better than yesterday, ready to go home. No CP/SOB. <Dior,Tristan S - 03/19/18 14:13> Results - Labs Result diagrams: 03/19/18 07:07 03/19/18 07:07 <Russ Tomlinson - 03/20/18 18:37> Abnormal lab results 03/19/18 03/19/18 Range/Units 07:07 07:07 WBC 11.1 H (4.0-11.0) th/mm3 [place] % (Auto) 10.2 H (0.0-8.0) % [place] # (Auto) 1.1 H (0.0-0.9) th/mm3 Estimated GFR 78 L (>89) mL/min Calcium 8.2 L (8.5-10.1) mg/dL Short CBC 03/19/18 Range/Units 07:07 WBC 11.1 H (4.0-11.0) th/mm3 Hgb 15.2 (13.0-17.0) gm/dL Hct 47.2 (39.0-51.0) % Plt Count 194 (150-450) th/mm3 BMP 03/19/18 07:07 Sodium 141 Potassium 4.8 Chloride 107 Carbon Dioxide 29.3 BUN 14 Creatinine 0.95 Calcium 8.2 L <Kin Diory S - 03/19/18 13:58> Physical Exam Vital signs: Vital Signs 03/18/18 15:09 03/18/18 15:42 03/18/18 16:00 Temperature 98.0 F Pulse Rate 99 H 81 Respiratory Rate 18 18 Blood Pressure 132/85 159/77 H Pulse Oximetry 94 L 94 L 94 L 03/18/18 16:56 03/18/18 20:00 03/18/18 21:00 Temperature 98.1 F Pulse Rate 68 65 70 Respiratory Rate 18 Blood Pressure 152/79 H Pulse Oximetry 92 L 03/18/18 22:00 03/18/18 23:00 03/19/18 00:00 Temperature 98.3 F Pulse Rate 73 69 61 Respiratory Rate 18 Blood Pressure 121/60 Pulse Oximetry 93 L 03/19/18 01:00 03/19/18 02:00 03/19/18 03:00 Temperature Pulse Rate 66 63 64 Respiratory Rate Blood Pressure Pulse Oximetry 03/19/18 04:00 03/19/18 04:04 03/19/18 05:04 Temperature 98 F Pulse Rate 60 60 62 Respiratory Rate 18 Blood Pressure 131/57 L Pulse Oximetry 93 L 03/19/18 06:00 03/19/18 07:00 03/19/18 08:00 Temperature 97.5 F L Pulse Rate 63 64 66 Respiratory Rate 18 Blood Pressure 165/85 H Pulse Oximetry 93 L 03/19/18 09:00 03/19/18 09:43 03/19/18 10:00 Temperature Pulse Rate 68 76 Respiratory Rate Blood Pressure Pulse Oximetry 93 L 03/19/18 11:00 Temperature Pulse Rate 80 Respiratory Rate Blood Pressure Pulse Oximetry Intake & Output 03/18/18 03/19/18 03/19/18 18:59 06:59 18:59 Intake Total 240 / 240 240 / 240 Output Total 450 / 450 700 / 700 Balance -210 / -210 -460 / -460 Weight 125.191 kg 125.1 kg Intake: Oral 240 / 240 240 / 240 Output: Urine 450 / 450 700 / 700 Other: # Voids 1 # Bowel Movements 0 <Tristan Dior S - 03/19/18 13:58> - Constitutional no acute distress, obese, cooperative <Tristan Dior S - 03/19/18 14:13> - Routine HEENT Exam Head: Present: normocephalic, atraumatic <Tristan Dior S - 03/19/18 14:13> - Routine Respiratory Exam Present: decreased breath sounds, CTA bilaterally. Absent: accessory muscle use , respiratory distress, wheezes, crackles <Tristan Dior S - 03/19/18 14:13> - Routine Cardiovascular Exam Present: RRR, S1, S2. Absent: murmur <Tristan Dior S - 03/19/18 14:13> - Routine Abdominal Exam Present: soft. Absent: distended <Tristan Dior S - 03/19/18 14:13> - Routine Extremities Exam Absent: edema <Tristan Dior S - 03/19/18 14:13> Assessment and Plan - Assessment (1) Atrial fibrillation with rapid ventricular response Code(s): I48.91 - Unspecified atrial fibrillation Status: Resolved (2) Hypertension Code(s): I10 - Essential (primary) hypertension Status: Chronic (3) COPD (chronic obstructive pulmonary disease) Code(s): J44.9 - Chronic obstructive pulmonary disease, unspecified Status: Acute (4) PASQUALE (obstructive sleep apnea) Code(s): G47.33 - Obstructive sleep apnea (adult) (pediatric) Status: Acute (5) Anxiety Code(s): F41.9 - Anxiety disorder, unspecified Status: Acute (6) Dyslipidemia Code(s): E78.5 - Hyperlipidemia, unspecified Status: Acute <Russ Tomlinson - 03/20/18 18:37> (1) Atrial fibrillation with rapid ventricular response Code(s): I48.91 - Unspecified atrial fibrillation Status: Resolved Plan: RVR resolved with diltiazem drip in ED, had been controlled with diltiazem 60 mg Q6H since yesterday afternoon * Cardiology consulted, appreciate recs * Continue metoprolol 25 mg PO BID * Stop diltiazem drip * Begin diltiazem ER 240 mg daily * Anticoagulation with Eliquis 5 mg BID * F/u in office with Dr. Sanchez * Continue management of hyperlipidemia and HTN * Refer to patient's design cell engineer for PASQUALE evaluation * Encourage weight loss (2) Hypertension Code(s): I10 - Essential (primary) hypertension Status: Chronic Plan: Continue losartan; diltiazem and metoprolol as above (3) COPD (chronic obstructive pulmonary disease) Code(s): J44.9 - Chronic obstructive pulmonary disease, unspecified Status: Acute Plan: Asymptomatic, continue home inhaled medication regimen (4) PASQUALE (obstructive sleep apnea) Code(s): G47.33 - Obstructive sleep apnea (adult) (pediatric) Status: Acute Plan: F/u with design cell engineer for sleep study and CPAP trial (5) Anxiety Code(s): F41.9 - Anxiety disorder, unspecified Status: Acute Plan: She reports recently being diagnosed with anxiety at the [facility]. His anxiety is not service related. -Patient may continue his home quetiapine, alprazolam, and Buspirone (6) Dyslipidemia Code(s): E78.5 - Hyperlipidemia, unspecified Status: Acute Plan: Pravastatin 80 mg daily <Tristan Dior - 03/19/18 14:06> - Assessment and Plan Discharge Planning: Home today with outpatient f/u <Tristan Dior - 03/19/18 14:13> - Attending Attestation The exam, history, and the medical decision-making described in the above note were completed with the assistance of the resident physician. I reviewed and agree with the findings presented. I attest that I had a [id number] encounter with the patient on the same day, and personally performed and documented my assessment and findings in the medical record. <Russ Tomlinson - 03/20/18 18:37> <Tristan Dior S - Last Filed: 03/19/18 14:06> (2) Hypertension Qualifiers: Hypertension type: essential hypertension Qualified Code(s): I10 - Essential (primary) hypertension <Russ Tomlinson - Last Filed: 03/20/18 18:37> (2) Hypertension Qualifiers: Hypertension type: essential hypertension Qualified Code(s): I10 - Essential (primary) hypertension <Tristan Dior S - Last Filed: 03/19/18 14:06> (2) Hypertension Qualifiers: Hypertension type: essential hypertension Qualified Code(s): I10 - Essential (primary) hypertension <Russ Tomlinson - Last Filed: 03/20/18 18:37> (2) Hypertension Qualifiers: Hypertension type: essential hypertension Qualified Code(s): I10 - Essential (primary) hypertension
--- NOTE | 2018-03-21 20:50 | ECG ---
Date Performed: 03/18/2018 Time Performed: 10:38:20 PTAGE: 72 years EKG: ATRIAL FIBRILLATION WITH RAPID VENTRICULAR RESPONSE LOW QRS VOLTAGE IN PRECORDIAL LEADS Non specific T wave changes. When compared to previous tracing, atrial fibrillation is new. ABNORMAL RHYT ECG PREVIOUS TRACING : 08/12/2017 16.50.57 DOCTOR: Nimesh Draper Interpretating Date/Time 03/21/2018 20:48:17
== END 2018-03-19 11:30 | disposition home or self-care (01) ==
LOC: NEPC 10:12 → NEDA 12:39 → HCIS 15:48
PROVIDERS: ADMIT Family Medicine; ATTEND Family Medicine